=== PATIENT | female | born 1940 | race Caucasian/White ===

== ENCOUNTER 2019-01-19 15:02 | Emergency (ER) | payer MEDICARE ==
--- NOTE | 2019-01-19 15:15 | ERPHSYRPT ---
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 she tripped. no cp, no dizziness. pt c/o right cheek, right hand/wrist and right rib pain. denies soa but does hurt in area with a deep breath. Occurred: just prior to arrival Reason for Fall: lost balance, tripped Injuries/Pain Location: face, upper extremity (right wrist and hand) Loss of Consciousness: no loss of consciousness Quality: burning Severity of Pain-Max: moderate Severity of Pain-Current: moderate Modifying Factors: Improves With: movement Associated Symptoms (Fall): extremity injury, No abdominal pain, No back pain, No confusion, No chest pain, No dizziness, No neck pain, No shortness of breath , No trouble walking Allergies/Adverse Reactions: No Known Drug Allergies Allergy (Verified 01/19/19 15:25) Home Medications: ALPRAZolam [Xanax 0.5 mg] 0.5 mg PO QHS 08/01/15 [History] Aspirin 81 mg PO DAILY 08/01/15 [History] Docusate Sodium [Stool Softener] 100 mg PO DAILY 08/01/15 [History] Escitalopram Oxalate [Lexapro] 5 mg PO DAILY 08/01/15 [History] Levothyroxine Sodium [Synthroid] 50 mcg PO DAILY 08/01/15 [History] Metformin HCl 500 mg [Glucophage 500 MG] 500 mg PO BID 08/01/15 [History] Metoprolol Succinate 25 mg PO DAILY 08/01/15 [History] Pantoprazole Sodium [Protonix] 40 mg PO DAILY 08/01/15 [History] Duloxetine HCl 30 mg PO DAILY 01/19/19 [History] Prednisone 10 mg [Deltasone 10 mg] 10 mg PO DAILY 01/19/19 [History] - Review of Systems Constitutional: No Symptoms Eyes: No Symptoms Ears, Nose, & Throat: No Symptoms Respiratory: No Symptoms Cardiac: No Symptoms Abdominal/Gastrointestinal: No Symptoms Genitourinary Symptoms: No Symptoms Musculoskeletal: Fall, Injury (right face, wrist/hand, ribs) Neurological: No Symptoms Psychological: No Symptoms Endocrine: No Symptoms Hematologic/Lymphatic: No Symptoms Immunological/Allergic: No Symptoms All Other Systems: Reviewed and Negative - Past Medical History Pertinent Past Medical History: Yes Neurological History: No Pertinent History ENT History: No Pertinent History Cardiac History: Coronary Artery Disease, Hypertension Respiratory History: No Pertinent History Endocrine Medical History: Diabetes Type II Musculoskeletal History: Arthritis, Osteoarthritis, Rheumatoid Arthritis GI Medical History: Other History: Other Psycho-Social History: Depression Female Reproductive Disorders: Fibroids Other Medical History: restless leg, nausea,ibs,kidney infections - Past Surgical History Past Surgical History: Yes Neuro Surgical History: No Pertinent History Cardiac: CABG, Cardiac Catheterization, Cardiac Stent Respiratory: No Pertinent History Gastrointestinal: No Pertinent History Genitourinary: No Pertinent History Musculoskeletal: Orthopedic Surgery Female Surgical History: No Pertinent History Other Surgical History: childbirth,2normal,2csection,right knee arthroscopy 2008 ,right shoulder rotator cuff 2011,triple bipass 2013,6 stents placed prior to bipass - Social History Smoking Status: Never smoker Exposure to second hand smoke: No Drug Use: none - Nursing Vital Signs Nursing Vital Signs: Initial Vital Signs Temperature 97.7 F 01/19/19 15:14 Pulse Rate 83 01/19/19 15:14 Blood Pressure 186/86 01/19/19 15:14 O2 Sat by Pulse Oximetry 99 01/19/19 15:14 Pain Scale Pain Intensity 10 - [place] Coma Score Best Eye Response (Will): (4) open spontaneously Best Verbal Response (Will): (5) oriented Best Motor Response ([place]): (6) obeys commands Will Total: 15 - Physical Exam General Appearance: no apparent distress, alert, anxiety Head Injury: no evidence of injury, No Angel's Sign, No contusions, No ecchymosis, No raccoon eyes, No swelling, No tenderness Eye Exam: PERRL/EOMI, eyes nml inspection ENT Exam: hearing grossly normal, other (right cheek swelling and ecchymosis), No dental injury, No midface instability, No hemotympanum Neck Exam: supple, trachea midline, full range of motion, normal alignment, normal inspection Respiratory/Chest Exam: normal breath sounds, ecchymosis, rib tenderness, No respiratory distress Cardiovascular Exam: normal heart sounds, regular rate/rhythm, normal peripheral pulses Gastrointestinal Exam: soft, normal bowel sounds, No tenderness Rectal Exam: not done Back Exam: normal inspection, normal range of motion, No CVA tenderness, No vertebral tenderness Extremity Exam: pain with movement (right wrist and hand), tenderness, other ( bruising distal wrist and prox dorsum of right hand) Neurologic Exam: alert, oriented x 3, cooperative, health safety engineer II-XII nml as tested, normal mood/affect, nml cerebellar function, nml station & gait Skin Exam: normal color, warm, dry SpO2 Interpretation: normal O2 Delivery: Room Air - Course Nursing assessment & vital signs reviewed: Yes Ordered Tests: Active Orders 24 hr Category Date Time Status FACIAL BONES WO CONTRAST [CT] Stat Exams 01/19/19 15:39 Completed HAND (MINIMUM 3 VIEWS) Stat Exams 01/19/19 15:59 Completed HEAD WITHOUT CONTRAST [CT] Stat Exams 01/19/19 15:22 Completed RIBS UNILATERAL Stat Exams 01/19/19 15:24 Completed WRIST (MIN 3 VIEWS) Stat Exams 01/19/19 15:24 Completed Medication Summary Discontinued Medications Generic Name Dose Route Start Last Admin Trade Name Freq PRN Reason Stop Dose Admin Albuterol Sulfate 2.5 mg 01/19/19 15:26 01/19/19 16:35 Proventil 2.5 Mg/3 Ml Neb IH 01/19/19 15:27 Not Given STAT ONE - Progress Progress: improved, pain not gone completely, re-examined Progress Note: 01/19/19 16:40 ct head- no acute intracranial abnormalities ct facial bones-maxilla spine tiny fx of uncertain chronicity xray right wrist-no acute fx/dislocation; xray right hand-minimally displaced prox 5th metacarpal fx xray right ribs-no acute rib fx; no pneumothorax. pt only wants ibuprofen here. she does not have transportation home. pt using tramadol at home. no longer has hydrocodone at home. Counseled pt/family regarding: diagnosis, need for follow-up, rad results - Departure Departure Disposition: Home Clinical Impression: Metacarpal bone fracture Condition: Stable Critical Care Time: No Referrals: DAY GALDAMEZ [Primary Care Provider] - Additional Instructions: ice pack 3 times daily for 3 days to rib and hand areas. follow up with orthopedic tomorrow for further management. continue ibuprofen at home. follow up with primary doctor for persistent symptoms Prescriptions: Hydrocodone/APAP 5/325 [[place] 5/325 mg] 1 each PO Q8H PRN PRN #10 tablet MDD 3 PRN Reason: Pain
[2019-01-19 15:25] VITALS: BP 186/86; PULSE 83; O2SAT 99
[2019-01-19] MEDS ORDERED: PROVENTIL 2.5 MG/3 ML NEB IH ONE (15:26)
--- NOTE | 2019-01-19 16:23 | XRAY ---
Indication: Right head injury following fall. Multiple contiguous axial images obtained through the head without contrast. Comparison: None Age-appropriate global atrophy. No acute intracranial hemorrhage, abnormal extra-axial fluid collection, or mass effect. Fourth ventricle is midline without hydrocephalus. Bony calvarium intact. Visualized paranasal sinuses and mastoid air cells are clear. Impression: Atrophy. No acute intracranial abnormalities. CTDI 50.75
--- NOTE | 2019-01-19 16:24 | XRAY ---
Indication: Right facial pain following fall. Multiple contiguous axial images obtained through the facial bones. Sagittal and coronal reformatted images obtained. Comparison: None Tiny fracture involving the tip of maxilla spine of uncertain chronicity. Elsewhere no acute fracture, suspicious bony lesions, or radiopaque foreign body. Orbits including roof, campos, and floors are intact. Paranasal sinuses and nasal passages are clear. Mild nasal septal deviation to the right. Mild/moderate multilevel degenerative changes of the visualized cervical spine. Mild TMJ degenerative changes bilaterally. Left lower incisor tooth dental eduardo. Mild scattered carotid ossifications, left greater than right. Remaining visualized noncontrasted soft tissues unremarkable. Impression: 1. Maxilla spine tip fracture of uncertain chronicity. 2. Cervical spine and TMJ degenerative changes. 3. Incidental left incisor tooth dental eduardo. CTDI 59.47
--- NOTE | 2019-01-19 16:26 | XRAY ---
Indication: Pain following fall. Comparison: None 3 views of the right hand demonstrates mildly displaced transverse fracture proximal shaft 5th metacarpal. Elsewhere osteopenia and degenerative changes of all IP/MCP joints and base of the 1st metacarpal. No other bony, articular, or soft tissue abnormalities.
--- NOTE | 2019-01-19 16:28 | XRAY ---
Indication: Pain following fall. Comparison: None 3 views of the right wrist demonstrates mildly displaced transverse fracture proximal shaft 5th metacarpal. Elsewhere osteopenia, moderate/advanced degenerative changes base of 1st metacarpal, scapholunate widening concerning for underlying ligamentous tear, and mild scattered vascular calcifications. No other bony, articular, or soft tissue abnormalities.
--- NOTE | 2019-01-19 16:33 | XRAY ---
Indication: Pain following fall. Comparison: None 2 views of the right ribs demonstrates osteopenia, distal clavicle resection, moderate glenohumeral degenerative arthropathy, mild lower lumbar degenerative spondylosis, CABG surgery, and scattered aortic calcifications. No other bony, articular, or soft tissue abnormalities.
[2019-01-19] MEDS ORDERED: MOTRIN 600 MG ONE (16:39)
[2019-01-21] MEDS ORDERED: MOTRIN 600 MG PO ONE (09:35)
== END 2019-01-19 17:25 | disposition home or self-care (01) ==
LOC: ED 15:02
DX: S62.306A Unspecified fracture of fifth metacarpal bone, right hand, initial encounter for closed fracture (principal); W01.198A Fall on same level from slipping, tripping and stumbling with subsequent striking against other object, initial encounter; Y93.01 Activity, walking, marching and hiking; G50.1 Atypical facial pain; M79.641 Pain in right hand; M25.531 Pain in right wrist; R07.81 Pleurodynia; Z79.899 Other long term (current) drug therapy; R58 Hemorrhage, not elsewhere classified
CPT/HCPCS: 29126; 70450; 70486; 71100; 73110; 73130; 99284; A9270-GY

== ENCOUNTER 2019-05-24 13:20 | Day surgery (SDC) | payer MEDICARE ==
--- NOTE | 2019-05-24 09:16 | HP ---
DATE OF SURGERY: 05/24/2019 HISTORY OF PRESENT ILLNESS: The patient is a 79 year-old for a while worse recently nauseated, tenderness right upper quadrant, pain radiating to her back. Ultrasound cholelithiasis. It was felt she had symptomatic cholelithiasis, chronic cholecystitis and benefit from cholecystectomy. PAST MEDICAL HISTORY: Hypothyroidism, diabetes, anxiety, depression, hypertension. PAST SURGICAL HISTORY: Triple vessel bypass. Colonoscopy. Left shoulder surgery. Right knee surgery. Upper and lower endoscopy in the past. Hysterectomy in the past for fibroid. Carotid endarterectomy in the past. MEDICATIONS: Alprazolam, aspirin, calcium with vitamin D, diclofenac, duloxetine, metformin, metoprolol, pantoprazole, prednisone, tramadol, vitamin D. ALLERGIES: NKDA. FAMILY HISTORY: Arthritis, heart disease, prostate cancer. SOCIAL HISTORY: No smoking or alcohol abuse. REVIEW OF SYSTEMS: Fourteen systems reviewed per admission assessment. No chest pain or palpitations. Otherwise systems negative or noncontributory as above and per preadmission questionnaire. PHYSICAL EXAMINATION: GENERAL: No acute distress. HEENT: Sclerae nonicteric. NECK: No JVD. CHEST: Equal excursion, nonlabored breathing. CVS: Regular rate and rhythm. ABDOMEN: Soft, some mild tenderness right upper quadrant. No peritoneal signs. EXTREMITIES: No significant edema. NEURO: Alert, oriented, moving extremities symmetrically. No gross motor deficits noted. IMPRESSION: Symptomatic cholelithiasis, probable chronic cholecystitis. I feel the patient will benefit from cholecystectomy. Risks and benefits explained in detail including but not limited to bleeding or infection, risk of trocar injury or hernia, small risk of bowel, bladder or blood vessel injury, risk of bile leak, bile duct injury, retained stone or sludge possibly requiring further procedure either open or ERCP, general risk of anesthesia, deep venous thrombosis, pulmonary embolism, pneumonia, perioperative risk of aches, pains, bloating, constipation and/or loose stools possibly chronic in nature. She had been shown the gallbladder pamphlet and risk sheet, explained the procedure in detail. She understands and agrees to the planned procedure, will proceed with laparoscopic cholecystectomy with possible open as an outpatient.
[~2019-05-24 13:20] MED LIST: Lactated Ringers 0 ML IV ONE; Lactated Ringers 1,000 ML IV ONE; Sensorcaine 0.25% 10 ML ONE
[2019-05-24] MEDS ORDERED: Versed 2 MG/2 ML Injection ONE (13:59)
[2019-05-24] MEDS ORDERED: Zemuron 100 MG/10 ML ONE (13:59)
[2019-05-24] MEDS ORDERED: SUBLIMAZE 250 MCG/5 ML ONE (13:59)
[2019-05-24] MEDS ORDERED: DIPRIVAN 200 MG/20 ML IV ONE (13:59)
[2019-05-24] MEDS: Lactated Ringers 1,000 ML IV SCH (14:07)
[2019-05-24] MEDS: MEFOXIN 2 GM PREMIX** 2 GM/50 ML ML IV SCH (14:19)
[2019-05-24] MEDS ORDERED: BRIDION 200MG/2ML IV ONE (15:42)
[2019-05-24] MEDS ORDERED: SUBLIMAZE 100 MCG/2 ML ONE (16:10)
[2019-05-24] MEDS ORDERED: MORPHINE SULFATE 10 MG/ML ONE (16:19)
[2019-05-24] MEDS ORDERED: Zofran 4 MG/2 ML VIAL ONE ×2 (16:22→17:37)
[2019-05-24] MEDS: Zofran 4 MG/2 ML VIAL IV PRN (17:39)
[2019-05-24] MEDS ORDERED: MORPHINE SULFATE 2 MG INJ ONE (18:13)
[2019-05-24] MEDS: MORPHINE SULFATE 2 MG INJ IV PRN (18:14)
[2019-05-24 18:36] VITALS: BP 131/66; PULSE 75; O2SAT 94
--- NOTE | 2019-05-25 10:39 | OP ---
SURGERY DATE/TIME: 05/24/2019 1507 PREOPERATIVE DIAGNOSIS: Symptomatic cholelithiasis, chronic cholecystitis. POSTOPERATIVE DIAGNOSIS: Symptomatic cholelithiasis, chronic cholecystitis. PROCEDURE: Laparoscopic cholecystectomy. SURGEON: Dr. Nabil Sheets. ANESTHESIA: General. ESTIMATED BLOOD LOSS: Minimal. INDICATIONS: As noted above. Risks and benefits explained in detail but not limited to and consent obtained. DESCRIPTION OF PROCEDURE AND FINDINGS: The patient was taken to the operating room. General anesthesia induced. Abdomen prepped and draped in the usual sterile fashion. After official time out and no disagreement with planned procedure, a transverse incision made at the supraumbilical area. Fascia grasped and pulled upward. Veress needle inserted and tested with saline. Pneumoperitoneum accomplished insufflating opening pressure of 0-15. A 5 mm bladeless port and camera inserted without difficulty followed by two - 5 mm right upper quadrant ports and 11 mm epigastric port. The gallbladder grasped retracted over the edge of the liver and laterally away from Calot's triangle dissecting posterior, lateral to anterior fashion. Slowly and carefully cystic duct and infundibular area slowly and carefully well skeletonized until the critical view obtained both anteriorly and posteriorly. Cystic duct and cystic artery clipped x3 and divided in usual fashion. Gallbladder slowly and carefully dissected free from its dense attachment to liver bed, clipping a couple additional oozing side branches off the cystic artery directly on the gallbladder wall as necessary. Just prior to releasing from final attachments to the anterior edge of the liver, the liver bed re-inspected. There is ooze from a little pulsatile vessel near the anterior edge of the liver this required tangential clipping. It appeared to have good hemostasis at that point. Gallbladder released from final attachments to anterior edge of the liver, placed in Pleatman sac and pulled up into epigastrium. The fascia is spread slightly with clamp allowing the gallbladder and Pleatman sac to be pulled free and passed off. Copious amount of irrigation accomplished lateral to the liver and subhepatic space irrigating until clear. Liver bed appeared to have good hemostasis. No signs of any oozing at the anterior edge of the liver, this appeared to have good hemostasis at this point. Cystic duct and cystic artery stump clips were intact. No signs of any active bleeding or bile leakage. It was felt there is no benefit from drain placement at this point. Fascial defect epigastric area closed with puncture closure device with #1 Vicryl. Pneumoperitoneum decompressed. The wound irrigated out. Skin incision closed with 4-0 Vicryl. Steri-Strips and sterile dressing applied. 0.25% Marcaine local injected along the skin incision fascial defect. The patient tolerated the procedure well. There were no immediate complications. I will see if there is any family available to discuss the findings with out in the waiting area as they were not initially in the waiting room but will check. Otherwise the patient will be transferred to the recovery room in stable condition.
== END 2019-05-24 18:52 | disposition home or self-care (01) ==
LOC: SDC 13:20
PROVIDERS: ATTEND Surgery
DX: K80.10 Calculus of gallbladder with chronic cholecystitis without obstruction (principal); E11.9 Type 2 diabetes mellitus without complications; I10 Essential (primary) hypertension; E03.9 Hypothyroidism, unspecified; Z79.899 Other long term (current) drug therapy
CPT/HCPCS: 82962; 99100; J0694; J2250; J2270; J2405; J2704; J3010

== ENCOUNTER 2019-10-11 09:02 | Day surgery (SDC) | payer MEDICARE ==
[~2019-10-11 09:02] MED LIST changes: -Lactated Ringers 0 ML IV ONE; +Lactated Ringers 1,000 ML IV SCH; -Sensorcaine 0.25% 10 ML ONE
--- NOTE | 2019-10-11 09:02 | HP ---
DATE OF SURGERY: 10/11/2019 HISTORY OF PRESENT ILLNESS: This is a 79 year-old with some loose stools and she had her gallbladder removed in the past. She had nausea. It is felt she needs screening colonoscopy as well as upper endoscopy given she had changes in bowel habits, nausea and discomfort. Last colonoscopy five years or so ago. No prior upper endoscopy. PAST MEDICAL HISTORY: Heart disease, diabetes, anxiety. PAST SURGICAL HISTORY: Triple bypass done 15 years ago. Stents in the past. MEDICATIONS: Levothyroxine, Metformin, duloxetine, metoprolol, prednisone, pantoprazole, vitamin D2, magnesium, vitamins, Alprazolam, tramadol. ALLERGIES: NKDA. FAMILY HISTORY: Heart disease, arthritis, diabetes, prostate cancer, ulcer. SOCIAL HISTORY: No smoking or alcohol abuse. REVIEW OF SYSTEMS: Fourteen systems reviewed per admission assessment. No chest pain or palpitations other systems negative or noncontributory as above and per preadmission questionnaire. PHYSICAL EXAMINATION: GENERAL: No acute distress. HEENT: Sclerae nonicteric. NECK: No JVD. CHEST: Equal excursion, nonlabored breathing. CVS: Regular rate and rhythm. ABDOMEN: Soft. No peritoneal signs. EXTREMITIES: No significant edema. NEURO: Alert, oriented, moving extremities symmetrically. No gross motor deficits noted. RECTAL: Deferred timed to endoscopy exam. IMPRESSION: Nausea, epigastric discomfort, change in bowel habits. I feel she needs upper endoscopy for further evaluation of gastritis, celiac disease, radiology, as well as screening colonoscopy to evaluate for microscopic colitis or other etiology. She was explained the risk in detail but not limited to bleeding, infection, risk of bowel injury or perforation possibly requiring further procedure, risk of missed or nondiagnosis or incomplete exam possibly barium enema, other studies or procedures. General risk of anesthesia or sedation, risk of bowel prep but not limited to, inability to diagnose the etiology of her symptoms possibly requiring treatment procedures. She understands will proceed with EGD and colonoscopy as an outpatient.
[2019-10-11] MEDS ORDERED: DIPRIVAN 200 MG/20 ML IV ONE ×2 (09:33→10:22)
[2019-10-11] MEDS ORDERED: Ketamine HCl 50 MG/ML ONE (09:34)
[2019-10-11 11:26] VITALS: BP 161/74; PULSE 77; O2SAT 100
--- NOTE | 2019-10-12 10:49 | OP ---
SURGERY DATE/TIME: 10/11/2019 1011 PREOPERATIVE DIAGNOSIS: History of nausea, epigastric discomfort, history of change in bowel habits, need for upper and lower endoscopy. POSTOPERATIVE DIAGNOSES: 1) Mild gastritis. 2) Mild diverticulosis. 3) Good bowel prep. 4) Question small submucosal lipomatous density distal sigmoid. 5) Small internal hemorrhoids. PROCEDURES: 1) EGD with cold biopsy of small bowel to evaluate for celiac sprue. 2) Cold biopsy of the antrum to evaluate for Helicobacter pylori. 3) Random cold biopsy distal esophagus to evaluate for eosinophilic esophagitis. 4) Colonoscopy to terminal ileum. 5) Retrograde ileoscopy. 6) Random ileal biopsies to evaluate for microscopic ileitis, random cold colon biopsy to evaluate for microscopic colitis. 7) Hot biopsy of mucosa overlying collection of small submucosal lipomatous density distal sigmoid. SURGEON: Dr. Nabil Sheets. ANESTHESIA: MAC. ESTIMATED BLOOD LOSS: Minimal. INDICATIONS: As noted above. Risks and benefits explained in detail and not limited to and consent obtained. DESCRIPTION OF PROCEDURE AND FINDINGS: The patient is taken to the operating room. MAC anesthesia introduced. After official time out and no disagreement with planned procedure, bite block positioned. Video gastroscope easily passed down the esophagus to the gastroesophageal junction about 36 cm through the patent pylorus to the junction to the junction of second and third portion of the duodenum. Proximal duodenum and duodenal bulb grossly unremarkable. Cold biopsy is taken of small bowel to evaluate for celiac sprue. Good hemostasis noted. Scope pulled back in the stomach. She did have minimal to mild gastritis. Cold biopsy taken to evaluate for Helicobacter pylori. Good hemostasis noted. On retroflex there was no evidence of any significant hiatal hernia. No signs of any obvious ulcers, masses or other mucosal lesions. The scope is pulled back to the gastroesophageal junction about 36 cm. Z-line was fairly crisp. No signs of any esophagitis or [place]'s. She did have a little bit of a saw tooth spasm of esophagus. Therefore I went ahead and did some random cold biopsies to evaluate for eosinophilic esophagitis although the mucosa itself was pretty smooth. No obvious lesions. Good hemostasis noted. Random cold biopsies had been taken of the esophagus. The scope is withdrawn. The patient tolerated this part of the procedure well. There were no immediate complications. Attention is then turned to colonoscopy. Digital rectal exam did not reveal any rectal masses. She did have some small internal hemorrhoids. Video colonoscope inserted and passed up through the tortuous sigmoid, descending, transverse colon and ascending colon. With external pressure the scope was able to be passed around to the cecum. Appendiceal orifice and valve well visualized. Scope was passed up the terminal ileum. Retrograde ileoscopy was performed which was grossly unremarkable. Given her symptom complaints of nausea, abdominal discomfort, change in bowel habits, cold biopsy is taken to evaluate for microscopic ileitis. Good hemostasis noted. The scope is slowly and carefully withdrawn over the next eight minutes. Prep overall was good. There were no signs of any large polyps, masses or obstructing lesions. Some random cold biopsies were taken of the colon to evaluate for microscopic colitis. She did have a few little very small diverticula, had some small internal hemorrhoids and in the distal sigmoid very small question of submucosal lipoma, very small hot biopsies accomplished of the mucosa over the top of it. Good hemostasis noted. There were no signs of any large polyps, masses or obstructing lesions. Findings discussed with the family out in the waiting area.
== END 2019-10-11 11:35 | disposition home or self-care (01) ==
LOC: SDC 09:02
PROVIDERS: ATTEND Surgery
DX: K29.70 Gastritis, unspecified, without bleeding (principal); K57.30 Diverticulosis of large intestine without perforation or abscess without bleeding; K64.8 Other hemorrhoids; R19.4 Change in bowel habit; E11.9 Type 2 diabetes mellitus without complications; I51.9 Heart disease, unspecified; Z79.899 Other long term (current) drug therapy
CPT/HCPCS: 36000; 82962; 88305; 99100; J2704

== ENCOUNTER 2020-02-11 14:20 | Emergency (ER) | payer MEDICARE ==
[2020-02-11] MEDS ORDERED: ANTIVERT 25 MG PO ONE (15:00)
--- NOTE | 2020-02-11 15:03 | ERPHSYRPT ---
- History of Present Illness Time Seen by Provider: 02/11/20 14:53 Source: patient Patient Subjective Stated Complaint: I have been really dizzy and my blood pressure has been running high the past couple of days. My eyes feel like they are funny. Triage Nursing Assessment: Pt presents to ER with complaints of dizziness and high blood pressure for the past couple of days. Pt is alert and oriented x 3 and communicates normally. Pt walks with unsteady gait and cane assist. Pt states feels dizzy and has had increased blood pressure lately. Pt states she has had nausea, denies vomiting and diarrhea. Pt complains of her eye feeling funny. Pupils are PERRL. Skin pink, warm, and dry. Slight swelling noted to vanesa lower extremiites. Abd soft and nontender. Resp are easy, denies shortness of breath and lungs are clear and equal throughout. Physician History: 79 years old female with history of hypertension, diabetes mellitus, hypothyroidism, hyperlipidemia presented in the ER with chief complaint of dizziness and elevated blood pressure. Patient reports this as a room spinning sensation more with standing up, activity and better with resting. Denies diplopia. She has chronic issues with balance and visual symptoms and thinks part of it is because of her eyesight needs to be corrected. She denies visual halos, floaters etc. Denies any numbness tingling or focal weakness. No difficulty speech. Denies any chest pain palpitations or shortness of breath during episodes of dizziness. Patient takes metoprolol for palpitations and her blood pressure is usually very well controlled but for the last couple of days she has been checking it regularly and it is staying high with 150s and 160s at times. She denies extra salt intake. She has mild nausea associated with dizziness but no vomiting. Timing/Duration: day(s) (2), intermittent, gradual onset, worse Severity: moderate Modifying Factors: Improves With: movement, rest Associated Symptoms: nausea Allergies/Adverse Reactions: No Known Drug Allergies Allergy (Verified 02/11/20 14:52) Home Medications: Levothyroxine Sodium [Synthroid] 50 mcg PO DAILY 08/01/15 [History] Metformin HCl 500 mg [Glucophage 500 MG] 500 mg PO DAILY 08/01/15 [History ] Metoprolol Succinate 25 mg PO DAILY 08/01/15 [History] Pantoprazole Sodium [Protonix] 40 mg PO DAILY 08/01/15 [History] Tramadol HCl 50 mg [Ultram 50 mg] 50 mg PO Q6HPRN PRN 05/13/19 [History] Ezetimibe 10 mg [Zetia 10 MG] 10 mg PO DAILY 09/23/19 [History] Hx Tetanus, Diphtheria Vaccination/Date Given: Yes Hx Influenza Vaccination/Date Given: Yes Hx Pneumococcal Vaccination/Date Given: Yes Immunizations Up to Date: Yes Travel Risk - International Travel Have you traveled outside of the country in past 3 weeks: No Have you or anyone close to you been diagnosed with or: No Do your reside in a community with a known COVID-19 case?: Yes If Yes where:: [facility] - Coronavirus Screening Has patient experienced Coronavirus symptoms: No - Review of Systems Constitutional: No Symptoms Eyes: Vision Changes Ears, Nose, & Throat: No Symptoms Respiratory: No Symptoms Cardiac: No Symptoms Abdominal/Gastrointestinal: Nausea Genitourinary Symptoms: No Symptoms Musculoskeletal: No Symptoms Neurological: No Symptoms Psychological: No Symptoms Endocrine: No Symptoms Hematologic/Lymphatic: No Symptoms Immunological/Allergic: No Symptoms - Past Medical History Pertinent Past Medical History: Yes Neurological History: No Pertinent History ENT History: No Pertinent History Cardiac History: Coronary Artery Disease, High Cholesterol Respiratory History: No Pertinent History Endocrine Medical History: Diabetes Type II, Hypothyroidism Musculoskeletal History: Arthritis, Osteoarthritis, Rheumatoid Arthritis GI Medical History: Other History: Other Psycho-Social History: Depression Female Reproductive Disorders: Fibroids Other Medical History: restless leg, nausea,ibs,kidney infections - Past Surgical History Past Surgical History: Yes Neuro Surgical History: No Pertinent History Cardiac: CABG, Cardiac Catheterization, Cardiac Stent Respiratory: No Pertinent History Gastrointestinal: Cholecystectomy Genitourinary: No Pertinent History Musculoskeletal: Orthopedic Surgery Female Surgical History: Hysterectomy, Section Other Surgical History: childbirth,2normal,2csection,right knee arthroscopy 2008 ,right shoulder rotator cuff 2011,triple bipass 2013,6 stents placed prior to bipass, skin cancer removed from top if head. - Social History Smoking Status: Never smoker Exposure to second hand smoke: No Drug Use: none Patient Lives Alone: Yes - Female History Hx Now: No - Nursing Vital Signs Nursing Vital Signs: Initial Vital Signs Temperature 97.8 F 02/11/20 14:40 Pulse Rate 69 02/11/20 14:40 Respiratory Rate 18 02/11/20 14:40 Blood Pressure 170/83 02/11/20 14:40 O2 Sat by Pulse Oximetry 95 02/11/20 14:40 Pain Scale Pain Intensity 0 - Physical Exam General Appearance: no apparent distress, alert, anxiety Eye Exam: PERRL/EOMI, eyes nml inspection Ears, Nose, Throat Exam: normal ENT inspection, TMs normal, pharynx normal Neck Exam: normal inspection, non-tender, supple, full range of motion Respiratory Exam: normal breath sounds, lungs clear Cardiovascular Exam: regular rate/rhythm, normal heart sounds Gastrointestinal/Abdomen Exam: soft, normal bowel sounds, No tenderness Back Exam: normal inspection, normal range of motion Extremity Exam: normal inspection Neurologic Exam: alert, oriented x 3, cooperative, sander hand II-XII nml as tested, normal mood/affect, nml cerebellar function, sensation nml, No motor deficits, No sensory deficit Skin Exam: normal color SpO2 Interpretation: normal SpO2: 95 O2 Delivery: Room Air - Course Nursing assessment & vital signs reviewed: Yes EKG Interpreted by Me: RATE (69), Sinus Rhythm, NORMAL AXIS, Non-specific ST Changes, Other (EKG #2. Time interpreted 5:45 PM. Rate 71. Rhythm sinus. [place] normal. Intervals normal. Nonspecific ST changes.) Ordered Tests: Active Orders 24 hr Category Date Time Status EKG-ER Only STAT Care 02/11/20 15:00 Active IV Insertion STAT Care 02/11/20 15:00 Active Orthostatic Vital Signs STAT Care 02/11/20 15:00 Active CHEST 1 VIEW (PORTABLE) Stat Exams 02/11/20 15:01 Completed HEAD WITHOUT CONTRAST [CT] Stat Exams 02/11/20 15:01 Completed CBC W DIFF Stat Lab 02/11/20 16:25 Completed CMP Stat Lab 02/11/20 16:25 Completed Lactic Acid Stat Lab 02/11/20 15:00 Ordered TROPONIN Q3H Lab 02/11/20 16:25 Completed TROPONIN Q3H Lab 02/11/20 18:30 Received TROPONIN Q3H Lab 02/11/20 21:00 Ordered TROPONIN Q3H Lab 02/12/20 00:00 Ordered TROPONIN Q3H Lab 02/12/20 03:00 Ordered UA W/RFX UR CULTURE Stat Lab 05/08/20 16:30 Completed Medication Summary Discontinued Medications Generic Name Dose Route Start Last Admin Trade Name Lela PRN Reason Stop Dose Admin Sodium Chloride 500 mls @ 499 mls/hr 02/11/20 15:00 02/11/20 16:38 Sodium Chloride 0.9% 1000 Ml IV 02/11/20 16:00 Infused .Q1H1M STA Infusion Sodium Chloride Confirm 02/11/20 15:20 Sodium Chloride 0.9% 1000 Ml Administered 02/11/20 15:21 Dose 1,000 mls @ ud .ROUTE .STK-MED ONE Meclizine HCl 12.5 mg 02/11/20 15:00 02/11/20 15:24 Antivert 25 Mg PO 02/11/20 15:01 12.5 mg STAT ONE Administration Meclizine HCl Confirm 02/11/20 15:20 Antivert 25 Mg Administered 02/11/20 15:21 Dose 25 mg .ROUTE .STK-MED ONE Lab/Rad Data: Laboratory Result Diagrams 02/11/20 16:25 02/11/20 16:25 Laboratory Results 02/11/20 02/11/20 02/11/20 Range/Units 16:30 16:25 16:25 WBC 9.4 (4.0-10.5) K/mm3 RBC 4.39 (4.1-5.4) M/mm3 Hgb 13.0 (12.0-16.0) gm/dl Hct 41.4 (35-47) % MCV 94.3 (78-100) fl MCH 29.6 (26-32) pg MCHC 31.4 L (32-36) g/dl RDW 14.6 H (11.5-14.0) % Plt Count 300 (150-450) K/mm3 MPV 10.4 (7.5-11.0) fl Gran % 53.6 (36.0-66.0) % Eos # (Auto) 0.19 (0-0.5) Absolute Lymphs (auto) 3.15 (1.0-4.6) Absolute Monos (auto) 0.97 (0.0-1.3) Lymphocytes % 33.5 (24.0-44.0) % Monocytes % 10.3 (0.0-12.0) % Eosinophils % 2.0 (0.00-5.0) % Basophils % 0.6 (0.0-0.4) % Absolute Granulocytes 5.03 (1.4-6.9) Basophils # 0.06 (0-0.4) Sodium 138 (137-145) mmol/L Potassium 4.2 (3.5-5.1) mmol/L Chloride 101 (98-107) mmol/L Carbon Dioxide 29 (22-30) mmol/L Anion Gap 12.8 (5-15) MEQ/L BUN 12 (7-17) mg/dL Creatinine 0.65 (0.52-1.04) mg/dL Estimated GFR > 60.0 ML/MIN Glucose 86 (74-106) mg/dL Calcium 9.3 (8.4-10.2) mg/dL Total Bilirubin 0.80 (0.2-1.3) mg/dL AST 24 (14-36) U/L ALT 11 (0-35) U/L Alkaline Phosphatase 104 (38-126) U/L Troponin I (0.000-0.034) ng/mL Serum Total Protein 7.8 (6.3-8.2) g/dL Albumin 4.2 (3.5-5.0) g/dL Urine Color YELLOW (YELLOW) Urine Appearance CLEAR (CLEAR) Urine pH 7.0 (5-6) Ur Specific [place] 1.006 (1.005-1.025) Urine Protein NEGATIVE (Negative) Urine Ketones NEGATIVE (NEGATIVE) Urine Blood NEGATIVE (0-5) Oscar/ul Urine Nitrite NEGATIVE (NEGATIVE) Urine Bilirubin NEGATIVE (NEGATIVE) Urine Urobilinogen NEGATIVE (0-1) mg/dL Ur Leukocyte Esterase NEGATIVE (NEGATIVE) Urine WBC (Auto) NONE (0-5) /HPF Urine RBC (Auto) NONE (0-2) /HPF U Epithel Cells (Auto) NONE (FEW) /HPF Urine Bacteria (Auto) NONE (NEGATIVE) /HPF Urine Mucus (Auto) SLIGHT (NEGATIVE) /HPF Urine Culture Reflexed NO (NO) Urine Glucose NEGATIVE (NEGATIVE) mg/dL 02/11/20 Range/Units 16:25 WBC (4.0-10.5) K/mm3 RBC (4.1-5.4) M/mm3 Hgb (12.0-16.0) gm/dl Hct (35-47) % MCV (78-100) fl MCH (26-32) pg MCHC (32-36) g/dl RDW (11.5-14.0) % Plt Count (150-450) K/mm3 MPV (7.5-11.0) fl Gran % (36.0-66.0) % Eos # (Auto) (0-0.5) Absolute Lymphs (auto) (1.0-4.6) Absolute Monos (auto) (0.0-1.3) Lymphocytes % (24.0-44.0) % Monocytes % (0.0-12.0) % Eosinophils % (0.00-5.0) % Basophils % (0.0-0.4) % Absolute Granulocytes (1.4-6.9) Basophils # (0-0.4) Sodium (137-145) mmol/L Potassium (3.5-5.1) mmol/L Chloride (98-107) mmol/L Carbon Dioxide (22-30) mmol/L Anion Gap (5-15) MEQ/L BUN (7-17) mg/dL Creatinine (0.52-1.04) mg/dL Estimated GFR ML/MIN Glucose (74-106) mg/dL Calcium (8.4-10.2) mg/dL Total Bilirubin (0.2-1.3) mg/dL AST (14-36) U/L ALT (0-35) U/L Alkaline Phosphatase (38-126) U/L Troponin I < 0.012 (0.000-0.034) ng/mL Serum Total Protein (6.3-8.2) g/dL Albumin (3.5-5.0) g/dL Urine Color (YELLOW) Urine Appearance (CLEAR) Urine pH (5-6) Ur Specific [place] (1.005-1.025) Urine Protein (Negative) Urine Ketones (NEGATIVE) Urine Blood (0-5) Oscar/ul Urine Nitrite (NEGATIVE) Urine Bilirubin (NEGATIVE) Urine Urobilinogen (0-1) mg/dL Ur Leukocyte Esterase (NEGATIVE) Urine WBC (Auto) (0-5) /HPF Urine RBC (Auto) (0-2) /HPF U Epithel Cells (Auto) (FEW) /HPF Urine Bacteria (Auto) (NEGATIVE) /HPF Urine Mucus (Auto) (NEGATIVE) /HPF Urine Culture Reflexed (NO) Urine Glucose (NEGATIVE) mg/dL - Progress Progress: improved, re-examined Progress Note: 79 years old is evaluated for some vertiginous symptoms which seems like positional. I have obtain orthostatic vitals which are negative. I have given her a small bolus of fluid and meclizine, on reevaluation patient report her dizziness is completely gone even with movements. She has a nonfocal neuro exam grossly. She walks with a cane for quite some time. No deficit otherwise. I have obtained CT head which is negative. Chest x-ray did not show any acute findings. EKG normal sinus with no acute ST elevation or depression. Troponin negative x2. Unremarkable chemistries. No UTI. She is offered observation admission to rule out any arrhythmias and other work-up but she wants to go home. Patient states that she has nobody to take care of her dogs and she cannot leave them alone. I will give her low-dose of meclizine to go home. She also has some element of anxiety and recommended monitoring blood pressure regularly and follow-up with primary care and counseled her that blood pressure for her age if it is around 150 it is not elevated, she needs to keep a log and take it to primary care which she seems understanding. ]\ 02/11/20 18:47 Counseled pt/family regarding: lab results, diagnosis, need for follow-up, rad results - Departure Departure Disposition: Home Clinical Impression: Postural dizziness, Uncontrolled hypertension Condition: Stable Critical Care Time: No Referrals: DAY GALDAMEZ [Primary Care Provider] - Follow Up with PCP/3 days Instructions: Vertigo (a Type of Dizziness) (DC) Additional Instructions: Follow-up with primary care physician for reevaluation. Use walker or cane all the time for ambulation to avoid a fall. Take meclizine only as needed. Return to ER for worsening dizziness, diplopia, numbness tingling focal weakness , chest pain palpitations or shortness of breath. Prescriptions: Meclizine HCl 25 mg [Antivert 25 mg] 12.5 mg PO BIDPRN PRN #20 tablet PRN Reason: Dizziness
[2020-02-11] MEDS ORDERED: ANTIVERT 25 MG ONE (15:20)
[2020-02-11] MEDS ORDERED: Sodium Chloride 0.9% 1000 ML 1,000 ML ONE (15:20)
--- NOTE | 2020-02-11 15:36 | XRAY ---
Indication: Dizziness and blurred vision. Blood pressure. Multiple contiguous axial images obtained through the head without contrast. Comparison: January 20, 2020. There is age-appropriate global atrophy and minimal periventricular degenerative micro-ischemia. No acute intracranial hemorrhage, abnormal extra-axial fluid collection, or mass effect. Duke-white matter differentiation preserved. Fourth ventricle is midline without hydrocephalus. Bony calvarium intact. Visualized paranasal sinuses and mastoid air cells are clear. Impression: Nonacute senile brain.
--- NOTE | 2020-02-11 15:39 | XRAY ---
Indication: Dizziness and blurred vision one week. High blood pressure. Comparison: January 12, 2013. Portable chest less inflated again without focal infiltrate, consolidation, or large effusion. Heart is not enlarged with interval CABG surgery. Bony thorax intact again with mild osteopenia, degenerative changes, and distal right clavicle resection. Impression: Continued nonacute chest with chronic features.
[2020-02-11 16:44] LABS: Absolute Neutrophil Ct (ANC) 5.03 (1.4-6.9); BASOPHIL % 0.6 % (0.0-0.4); Basophil (Absolute #) 0.06 (0-0.4); Eosinophil (Absolute #) 0.19 (0-0.5); Hematocrit 41.4 % (35-47); Lymphocyte (Absolute #) 3.15 (1.0-4.6); Lymphocytes % 33.5 % (24.0-44.0); Mean Cell Volume 94.3 fl (78-100); Mean Corpuscular Hemoglobin 29.6 pg (26-32); Mean Corpuscular Hgb Concent. 31.4 g/dl (32-36); Mean Platelet Volume 10.4 fl (7.5-11.0); Monocyte (Absolute #) 0.97 (0.0-1.3); Monocytes % 10.3 % (0.0-12.0); Neutrophil % 53.6 % (36.0-66.0); Platelet Count 300 K/mm3 (150-450); Red Blood Count 4.39 M/mm3 (4.1-5.4); Red Cell Distribution Width 14.6 % (11.5-14.0); White Blood Count 9.4 K/mm3 (4.0-10.5)
[2020-02-11 16:46] LABS: Appearance CLEAR (CLEAR); Bilirubin NEGATIVE (NEGATIVE); Blood NEGATIVE Ery/ul (0-5); Glucose NEGATIVE (NEGATIVE); Ketones NEGATIVE (NEGATIVE); Leukocyte Esterase NEGATIVE (NEGATIVE); Mucus SLIGHT /HPF (NEGATIVE); Nitrite NEGATIVE (NEGATIVE); Protein,Urine Dip NEGATIVE (Negative); Specific Gravity 1.006 (1.005-1.025); Urobilinogen NEGATIVE mg/dL (0-1)
[2020-02-11 16:54] LABS: ALBUMIN 4.2 g/dL (3.5-5.0); ALKALINE PHOSPHATASE 104 U/L (38-126); ANION GAP 12.8 MEQ/L (5-15); BLOOD UREA NITROGEN 12 mg/dL (7-17); CHLORIDE 101 mmol/L (98-107); Calcium 9.3 mg/dL (8.4-10.2); Carbon Dioxide 29 mmol/L (22-30); Creatinine 1 0.65 mg/dL (0.52-1.04); Glucose 86 mg/dL (74-106); Potassium 4.2 mmol/L (3.5-5.1); SGOT/AST 24 U/L (14-36); SGPT/ALT 11 U/L (0-35); SODIUM 138 mmol/L (137-145); Total Protein 7.8 g/dL (6.3-8.2)
[2020-02-11 19:02] VITALS: BP 172/97; PULSE 66; O2SAT 98
== END 2020-02-11 19:02 | disposition home or self-care (01) ==
LOC: ED 14:20
DX: R42 Dizziness and giddiness (principal); I10 Essential (primary) hypertension; I25.10 Atherosclerotic heart disease of native coronary artery without angina pectoris; E78.00 Pure hypercholesterolemia, unspecified; E11.9 Type 2 diabetes mellitus without complications; E03.9 Hypothyroidism, unspecified; F32.9 Major depressive disorder, single episode, unspecified; M06.9 Rheumatoid arthritis, unspecified
CPT/HCPCS: 36000; 36415; 70450; 71045; 80053; 81001; 84484; 85025; 93005; 96360; 99284; A9270-GY

== ENCOUNTER 2022-10-28 12:43 | Emergency (ER) | payer MEDICARE ==
--- NOTE | 2022-10-28 12:57 | ERPHSYRPT ---
- History of Present Illness Time Seen by Provider: 10/28/22 12:56 Source: patient Exam Limitations: no limitations Physician History: This is an 82-year-old white female patient of Dr. Pritesh Pereyra who has chronic low back pain. She complains of left hip pain and sciatica there is been present over 3 days. Patient started on Medrol Dosepak and only took a few days because she started having some nausea and stomach upset. Patient is taking tramadol. Patient had a CT scan of the abdomen pelvis on 10/09/2022 without contrast. There were chronic findings. There is no acute findings present. There was no abdominal aortic aneurysm. There is mild degenerative changes in both hips. Patient has a history of hypothyroidism, hypertension, gastroesophageal reflux disease, coronary artery disease, arthritis, osteoarthritis, rheumatoid arthritis and hyperlipidemia. Patient denies chest pain. She does not have shortness of breath. Patient states that she came to the emergency department because of upset stomach and nausea that she has had in the last few days. Again, she has stopped her Medrol Dosepak. I obtained history from the patient's friend as well as the patient's old chart and recent outpatient clinic visit at [facility]. Patient states that currently her left leg does not hurt when she is not moving it. Timing/Duration: day(s) (3), intermittent Method of Injury: other (No known injury) Quality: sharp (When moving her left leg), stabbing (When moving her left leg) Severity of Pain-Max: moderate Severity of Pain-Current: mild Modifying Factors: Improves With: movement Associated Symptoms: nausea, lower back pain, No urinary incontinence, No loss of bowel control, No vomiting, No numbness in legs/feet, No weakness Previous symptoms: same symptoms as today, recently seen, recently treated Allergies/Adverse Reactions: No Known Drug Allergies Allergy (Verified 10/28/22 12:56) Home Medications: Levothyroxine Sodium [Synthroid] 50 mcg PO DAILY 08/01/15 [History] Metformin HCl 500 mg [Glucophage 500 MG] 500 mg PO DAILY 08/01/15 [History] Metoprolol Succinate 25 mg PO DAILY 08/01/15 [History] Pantoprazole Sodium [Protonix] 40 mg PO DAILY 08/01/15 [History] Ezetimibe 10 mg [Zetia 10 MG] 10 mg PO DAILY 09/23/19 [History] ALPRAZolam [Alprazolam] 1 ea DAILY 10/28/22 [History] methylPREDNISolone [Methylprednisolone] 4 mg PO DAILY 10/28/22 [History] Hx Tetanus, Diphtheria Vaccination/Date Given: Yes Hx Influenza Vaccination/Date Given: Yes Hx Pneumococcal Vaccination/Date Given: Yes Travel Risk - International Travel Have you traveled outside of the country in past 3 weeks: No - Coronavirus Screening Are you exhibiting any of the following symptoms?: No Close contact with a COVID-19 positive Pt in past 14-21 Days: No - Review of Systems Constitutional: No Symptoms Eyes: No Symptoms Ears, Nose, & Throat: No Symptoms Respiratory: No Symptoms Cardiac: No Symptoms Abdominal/Gastrointestinal: Abdominal Pain (Mild epigastric), Nausea, No Vomiting, No Diarrhea Genitourinary Symptoms: No Symptoms Musculoskeletal: Back Pain Skin: No Symptoms Neurological: No Symptoms Psychological: No Symptoms Endocrine: No Symptoms Hematologic/Lymphatic: No Symptoms Immunological/Allergic: No Symptoms All Other Systems: Reviewed and Negative - Past Medical History Pertinent Past Medical History: Yes Neurological History: No Pertinent History ENT History: No Pertinent History Cardiac History: Coronary Artery Disease, High Cholesterol Respiratory History: No Pertinent History Endocrine Medical History: Diabetes Type II, Hypothyroidism Musculoskeletal History: Arthritis, Osteoarthritis, Rheumatoid Arthritis GI Medical History: Other History: Other Psycho-Social History: Depression Female Reproductive Disorders: Fibroids Other Medical History: restless leg, nausea,ibs,kidney infections - Past Surgical History Past Surgical History: Yes Neuro Surgical History: No Pertinent History Cardiac: CABG, Cardiac Catheterization, Cardiac Stent Respiratory: No Pertinent History Gastrointestinal: Cholecystectomy Genitourinary: No Pertinent History Musculoskeletal: Orthopedic Surgery Female Surgical History: Hysterectomy, Section Other Surgical History: childbirth,2normal,2csection,right knee arthroscopy 2008,right shoulder rotator cuff 2011,triple bipass 2013,6 stents placed prior to bipass, skin cancer removed from top if head. - Social History Smoking Status: Never smoker Exposure to second hand smoke: No Drug Use: none Patient Lives Alone: Yes - Nursing Vital Signs Nursing Vital Signs: Initial Vital Signs Temperature 97.0 F 10/28/22 12:54 Pulse Rate 72 10/28/22 12:54 Respiratory Rate 18 10/28/22 12:54 Blood Pressure 128/72 10/28/22 12:54 O2 Sat by Pulse Oximetry 96 10/28/22 12:54 Pain Scale Pain Intensity 0 - Physical Exam General Appearance: no apparent distress, alert, anxiety Eye Exam: PERRL/EOMI, eyes nml inspection Ears, Nose, Throat Exam: normal ENT inspection, moist mucous membranes Neck Exam: normal inspection, non-tender, supple, full range of motion Respiratory Exam: normal breath sounds, lungs clear, airway intact, No chest tenderness, No respiratory distress Cardiovascular Exam: regular rate/rhythm, normal heart sounds, normal peripheral pulses Gastrointestinal Exam: soft, normal bowel sounds, No tenderness, No guarding Pelvic Exam: not done Rectal Exam: not done Back Exam: normal inspection, decreased range of motion, muscle spasm, No CVA te nderness Extremity Exam: normal inspection, normal range of motion, pelvis stable Neurologic Exam: alert, oriented x 3, cooperative, reception manager II-XII nml as tested, normal mood/affect, nml cerebellar function, nml station & gait, sensation nml Skin Exam: normal color, warm, dry Lymphatic Exam: No adenopathy SpO2 Interpretation: normal SpO2: 96 O2 Delivery: Room Air - Course Nursing assessment & vital signs reviewed: Yes Ordered Tests: Active Orders 24 hr Category Date Time Status IV Insertion STAT Care 10/28/22 13:32 Active LUMBAR SPINE W/O [CT] Stat Exams 10/28/22 13:53 Completed AMYLASE Stat Lab 10/28/22 13:50 Completed CBC W DIFF Stat Lab 10/28/22 13:50 Completed CMP Stat Lab 10/28/22 13:50 Completed LIPASE Stat Lab 10/28/22 13:50 Completed UA W/RFX UR CULTURE Stat Lab 10/28/22 15:13 Completed Medication Summary Generic Name Dose Route Start Last Admin Trade Name Freq PRN Reason Stop Dose Admin Sodium Chloride 1,000 mls @ 100 mls/hr 10/28/22 13:45 10/28/22 13:42 Sodium Chloride 0.9% 1000 Ml IV 11/27/22 13:44 100 mls/hr .Q10H EVGENY Administration Discontinued Medications Generic Name Dose Route Start Last Admin Trade Name Freq PRN Reason Stop Dose Admin Methylprednisolone Sodium 0 mg 10/28/22 16:09 10/28/22 16:24 Succinate 125 mg/ Sterile IV 10/28/22 16:10 125 mg Water 2 ml STAT ONE Administration Methylprednisolone Sodium Succinate Confirm 10/28/22 16:21 Methylprednis Sod Succ 125 Mg/2 Ml Vial Administered 10/28/22 16:22 Dose 125 mg .ROUTE .STK-MED ONE Morphine Sulfate 2 mg 10/28/22 16:09 10/28/22 16:25 Morphine Sulfate 2 Mg/Ml Inj IV 10/28/22 16:10 2 mg STAT ONE Administration Morphine Sulfate Confirm 10/28/22 16:20 Morphine Sulfate 2 Mg/Ml Inj Administered 10/28/22 16:21 Dose 2 mg .ROUTE .STK-MED ONE Ondansetron HCl 4 mg 10/28/22 13:32 10/28/22 13:42 Ondansetron Hcl 4 Mg/2 Ml Vial IV 10/28/22 13:33 4 mg STAT ONE Administration Ondansetron HCl Confirm 10/28/22 13:39 Ondansetron Hcl 4 Mg/2 Ml Vial Administered 10/28/22 13:40 Dose 4 mg .ROUTE .STK-MED ONE Pantoprazole Sodium 40 mg 10/28/22 13:54 10/28/22 14:05 Pantoprazole 40 Mg Vial IV 10/28/22 13:55 40 mg STAT ONE Administration Pantoprazole Sodium Confirm 10/28/22 14:03 Pantoprazole 40 Mg Vial Administered 10/28/22 14:04 Dose 40 mg IV .STK-MED ONE Sterile Water Confirm 10/28/22 16:20 Water For Injection,Sterile 10 Ml Vial Administered 10/28/22 16:21 Dose 10 ml IJ .STK-MED ONE Lab/Rad Data: Laboratory Result Diagrams 10/28/22 13:50 10/28/22 13:50 Laboratory Results 10/28/22 10/28/22 10/28/22 Range/Units 15:13 13:50 13:50 WBC 13.0 H (4.0-10.5) x10^3/uL RBC 4.42 (4.1-5.4) x10^6/uL Hgb 13.3 (12.0-16.0) g/dL Hct 41.1 (35-47) % MCV 93.0 (78-100) fL MCH 30.1 (26-32) pg MCHC 32.4 (32-36) g/dL RDW 14.4 H (11.5-14.0) % Plt Count 354 (150-450) x10^3/uL MPV 9.9 (7.5-11.0) fL Gran % 63.6 (36.0-66.0) % Immature Gran % (Auto) 0.4 (0.00-0.4) % Nucleat RBC Rel Count 0.0 (0.00-0.1) % Eos # (Auto) 0.08 (0-0.5) x10^3/uL Immature Gran # (Auto) 0.05 H (0.00-0.03) x10^3u/L Absolute Lymphs (auto) 3.28 (1.0-4.6) x10^3/uL Absolute Monos (auto) 1.22 (0.0-1.3) x10^3/uL Absolute Nucleated RBC 0.00 (0.00-0.01) x10^3u/L Lymphocytes % 25.3 (24.0-44.0) % Monocytes % 9.4 (0.0-12.0) % Eosinophils % 0.6 (0.00-5.0) % Basophils % 0.7 (0.0-0.4) % Absolute Granulocytes 8.23 H (1.4-6.9) x10^3/uL Basophils # 0.09 (0-0.4) x10^3/uL Sodium 131 L (137-145) mmol/L Potassium 4.9 (3.5-5.1) mmol/L Chloride 99 (98-107) mmol/L Carbon Dioxide 25 (22-30) mmol/L Anion Gap 11.5 (5-15) MEQ/L BUN 13 (7-17) mg/dL Creatinine 0.65 (0.52-1.04) mg/dL Estimated GFR > 60.0 ML/MIN Glucose 89 (74-106) mg/dL Calcium 8.9 (8.4-10.2) mg/dL Total Bilirubin 0.70 (0.2-1.3) mg/dL AST 29 (14-36) U/L ALT 16 (0-35) U/L Alkaline Phosphatase 88 (38-126) U/L Serum Total Protein 7.2 (6.3-8.2) g/dL Albumin 4.2 (3.5-5.0) g/dL Amylase 52 (30-110) U/L Lipase 88 (23-300) U/L Urine Color Yellow (Yellow) Urine Appearance Clear (Clear) Urine pH 7.0 (4.6-8.0) Ur Specific [place] 1.010 (1.005-1.030) Urine Protein Negative (Negative) Urine Glucose (UA) Negative (Negative) mg/dL Urine Ketones Negative (Negative) Urine Blood Negative (Negative) Urine Nitrite Negative (Negative) Urine Bilirubin Negative (Negative) Urine Urobilinogen 0.2 (0.2) mg/dL Ur Leukocyte Esterase Negative (Negative) U Hyaline Cast (Auto) NONE SEEN (0-2) /LPF Urine Microscopic RBC 0-2 (0-5) /HPF Urine Microscopic WBC 0-2 (0-5) /HPF Ur Epithelial Cells None Seen (None Seen) /HPF Urine Bacteria None Seen (None Seen) /HPF Urine Culture Reflexed NO (NO) - Progress Progress: improved, pain not gone completely Progress Note: 10/28/22 14:02 Medical decision making: This patient had a CAT scan of the abdomen pelvis within the last approximately 2 to 3 weeks. Nothing has really changed in terms of her abdomen and pelvis. She has persistent, intermittent sharp shooting sciatica on the left side. She was started on some steroids which I think has maybe caused some gastritis. Based on my physical examination, the patient does not have an acute surgical abdomen. I do not think it is necessary to repeat the CAT scan of the abdomen pelvis without contrast or with contrast. Patient has no evidence of any abdominal aortic aneurysm. 10/28/22 15:16 CT scan of the lumbar spine without contrast shows no new or acute findings. This is compared to CT scan of the abdomen pelvis without contrast performed on 10/09/2022. 10/28/22 16:39 Medical decision making: This patient had some nausea and abdominal complaints which is likely secondary to the steroid that she was taking orally. She still has her sciatic pain when she moves her left leg. We will change her medications around and have her stop her steroids. Patient is to follow-up with Dr. Pritesh Pereyra by phone tomorrow to make arrange for follow-up appointment. She is to continue taking her Protonix as I will place her on naproxen twice daily with food and [place] 5/325 1/2 to 1 tablet orally 2 times a day as needed for sciatica pain Counseled pt/family regarding: lab results, diagnosis, need for follow-up, rad results - Departure Departure Disposition: Home Clinical Impression: Gastritis, Left sided sciatica Condition: Stable Critical Care Time: No Referrals: LUIS DANIEL HORTA [Primary Care Provider] - Follow up/PCP as directed Additional Instructions: Stop your steroid. Take your new medication as prescribed. Follow-up with Dr. Pritesh Pereyra's office by phone tomorrow to make arrangements for follow-up appointment. Prescriptions: Ondansetron ODT 4 MG [Zofran Odt 4 mg] 4 mg PO Q6H PRN PRN #10 tablet PRN Reason: Vomiting Hydrocodone/APAP 5/325 [[place] 5/325 mg] 1 tab PO Q12H PRN PRN #6 tablet MDD 2 PRN Reason: Pain Naproxen 500 mg [Naprosyn 500 MG] 500 mg PO BID #10 tablet
[2022-10-28] MEDS ORDERED: Zofran 4 MG/2 ML VIAL IV ONE (13:32)
[2022-10-28] MEDS ORDERED: Sodium Chloride 0.9% 1000 ML 1,000 ML ONE (13:39)
[2022-10-28] MEDS ORDERED: Zofran 4 MG/2 ML VIAL ONE (13:39)
[2022-10-28] MEDS ORDERED: Sodium Chloride 0.9% 1000 ML 1,000 ML IV SCH (13:45)
[2022-10-28] MEDS ORDERED: PROTONIX 40 MG IV IV ONE ×2 (13:54→14:03)
--- NOTE | 2022-10-28 14:25 | XRAY ---
Indication: Low back pain. Multiple contiguous axial images obtained through the lumbar spine. Sagittal and coronal reformatted images obtained. Comparison: October 09, 2022. Stable osteopenia. Axial images again demonstrates mild broad-based L2-L5 disc osteophyte complex, T11-L1/L2-L4 degenerative vacuum disc phenomena, and moderate bilateral L4-S1 degenerative facet arthropathy. No obvious large disc herniation or spinal canal stenosis. Sagittal coronal reformatted images again demonstrate minimal levoscoliosis, moderate/advanced multilevel thoracolumbar degenerative disc space loss greatest at L2-L4, and minimal grade 1 L4 spondylolisthesis. No acute compression fracture. Visualized noncontrasted soft tissues again demonstrates moderate scattered aortoiliac calcifications, sigmoid diverticulosis, old granulomatous disease, and cholecystectomy clips. Impression: No change compared to October 09, 2022. Again osteopenia, levoscoliosis, multilevel degenerative spondylosis, grade 1 L4 listhesis, arteriosclerotic disease, and sigmoid diverticulosis. No new/acute findings.
[2022-10-28 14:26] LABS: Absolute Neutrophil Ct (ANC) 8.23 x10^3/uL (1.4-6.9); BASOPHIL % 0.7 % (0.0-0.4); Basophil (Absolute #) 0.09 x10^3/uL (0-0.4); Eosinophil % 0.6 % (0.00-5.0); Eosinophil (Absolute #) 0.08 x10^3/uL (0-0.5); Hematocrit 41.1 % (35-47); Hemoglobin 13.3 g/dL (12.0-16.0); IMMATURE GRAN # 0.05 x10^3u/L (0.00-0.03); IMMATURE GRAN % 0.4 % (0.00-0.4); Lymphocyte (Absolute #) 3.28 x10^3/uL (1.0-4.6); Lymphocytes % 25.3 % (24.0-44.0); Mean Corpuscular Hemoglobin 30.1 pg (26-32); Mean Corpuscular Hgb Concent. 32.4 g/dL (32-36); Mean Platelet Volume 9.9 fL (7.5-11.0); Monocyte (Absolute #) 1.22 x10^3/uL (0.0-1.3); Monocytes % 9.4 % (0.0-12.0); Neutrophil % 63.6 % (36.0-66.0); Platelet Count 354 x10^3/uL (150-450); Red Blood Count 4.42 x10^6/uL (4.1-5.4); Red Cell Distribution Width 14.4 % (11.5-14.0)
[2022-10-28 15:55] LABS: Appearance Clear (Clear); Bilirubin Negative (Negative); Blood Negative (Negative); Glucose, Urine Negative (Negative); Ketones Negative (Negative); Leukocyte Esterase Negative (Negative); Nitrite Negative (Negative); Protein,Urine Dip Negative (Negative); Urobilinogen 0.2 mg/dL (0.2)
[2022-10-28 16:08] LABS: ALBUMIN 4.2 g/dL (3.5-5.0); ALKALINE PHOSPHATASE 88 U/L (38-126); AMYLASE 52 U/L (30-110); ANION GAP 11.5 MEQ/L (5-15); BLOOD UREA NITROGEN 13 mg/dL (7-17); CHLORIDE 99 mmol/L (98-107); Calcium 8.9 mg/dL (8.4-10.2); Carbon Dioxide 25 mmol/L (22-30); Creatinine 1 0.65 mg/dL (0.52-1.04); EST GLOMERULAR FILTRATION RATE > 60.0 ML/MIN; Glucose 89 mg/dL (74-106); LIPASE 88 U/L (23-300); SGOT/AST 29 U/L (14-36); SGPT/ALT 16 U/L (0-35); SODIUM 131 mmol/L (137-145); Total Protein 7.2 g/dL (6.3-8.2)
[2022-10-28] MEDS ORDERED: MORPHINE SULFATE 2 MG INJ IV ONE (16:09)
[2022-10-28] MEDS ORDERED: solu-MEDROL 125 MG, Sterile H2O 10 ml 2 ML IV ONE ×2 (16:09)
[2022-10-28 16:12] LABS: Potassium 4.9 mmol/L (3.5-5.1)
[2022-10-28] MEDS ORDERED: MORPHINE SULFATE 2 MG INJ ONE (16:20)
[2022-10-28] MEDS ORDERED: Sterile H2O 10 ml IJ ONE (16:20)
[2022-10-28] MEDS ORDERED: solu-MEDROL ONE (16:21)
[2022-10-28 16:51] LABS: Bacteria None Seen /HPF (None Seen); Epithelial Cells None Seen /HPF (None Seen); Hyaline Casts NONE SEEN /LPF (0-2); RBC 0-2 /HPF (0-5); WBC 0-2 /HPF (0-5)
[2022-10-28 16:54] LABS: ADD URINE CULTURE? NO (NO)
[2022-10-28 17:05] VITALS: BP 152/59; PULSE 62; O2SAT 98
== END 2022-10-28 17:16 | disposition home or self-care (01) ==
LOC: ED 12:43
DX: K29.70 Gastritis, unspecified, without bleeding (principal); M54.32 Sciatica, left side; R11.0 Nausea; I10 Essential (primary) hypertension; E78.5 Hyperlipidemia, unspecified; E11.9 Type 2 diabetes mellitus without complications; Z79.891 Long term (current) use of opiate analgesic; Z79.84 Long term (current) use of oral hypoglycemic drugs; Z79.52 Long term (current) use of systemic steroids; Z79.899 Other long term (current) drug therapy
CPT/HCPCS: 36000; 36415; 72131; 80053; 81001; 82150; 83690; 85025; 96374; 96375; 99284; J2270; J2405; J2930

== ENCOUNTER 2023-06-21 05:36 | Observation (INO) | payer MEDICARE ==
--- NOTE | 2023-06-21 06:13 | ERPHSYRPT ---
- History of Present Illness Time Seen by Provider: 06/21/23 06:01 Source: patient Exam Limitations: no limitations Patient Subjective Stated Complaint: cough, sorethroat, fever, body aches, low back pain since 06/19/23 Triage Nursing Assessment: pt presents to ED via Scat 1, pt alert and oriented x3, skin pwd, pt febrile via oral temperature, pt c/o cough, sorethroat, overall body aches, and low back pain x2-3 days, pt has hx of sciatica Physician History: Pt states she has had a dry cough, sore throat, chills and body aches for the past 2 days; denies vomiting, abdominal pain. Pt states she has been having urinary frequency. Allergies/Adverse Reactions: No Known Drug Allergies Allergy (Verified 06/21/23 05:42) Home Medications: Levothyroxine Sodium [Synthroid] 50 mcg PO DAILY 08/01/15 [History] Metformin HCl 500 mg [Glucophage 500 MG] 500 mg PO BID 08/01/15 [History] Metoprolol Succinate 25 mg PO DAILY 08/01/15 [History] ALPRAZolam [Alprazolam] 1 ea DAILY 10/28/22 [History] Cyanocobalamin (Vitamin B-12) [Vitamin B-12] 10,000 mcg SL DAILY 06/21/23 [History] Ergocalciferol (Vitamin D2) [Drisdol] 1,250 mcg PO WEEKLY 06/21/23 [History] Famotidine [Acid Controller] 20 mg PO BID 06/21/23 [History] Nitroglycerin 0.4 mg Tablet [Nitrostat 0.4 MG Tablet] 0.4 mg SL DIRECTIONS UNKNOWN PRN 06/21/23 [History] Tramadol HCl 50 mg [Ultram 50 mg] 50 mg PO DAILY PRN 06/21/23 [History] Hx Tetanus, Diphtheria Vaccination/Date Given: No Hx Influenza Vaccination/Date Given: Yes Hx Pneumococcal Vaccination/Date Given: Yes Immunizations Up to Date: No Travel Risk - International Travel Have you traveled outside of the country in past 3 weeks: No - Coronavirus Screening Are you exhibiting any of the following symptoms?: Yes Symptoms: Fever, Cough: New Onset Close contact with a COVID-19 positive Pt in past 14-21 Days: No - Vaccine Status Have you recieved a Covid-19 vaccination: Yes Medical Appointment Clerk: Moderna - Vaccination Dates Date of 2cond Vaccination (if applicable): 2020 - Review of Systems Constitutional: Chills Ears, Nose, & Throat: Throat Pain Respiratory: Cough, No Dyspnea Cardiac: No Chest Pain Abdominal/Gastrointestinal: No Abdominal Pain Genitourinary Symptoms: Frequency Musculoskeletal: Myalgias - Past Medical History Pertinent Past Medical History: Yes Neurological History: No Pertinent History ENT History: No Pertinent History Cardiac History: Congestive Heart Failure, Hypertension Respiratory History: Other Endocrine Medical History: Diabetes Type II, Hypothyroidism Musculoskeletal History: Osteoarthritis, Osteoporosis, Rheumatoid Arthritis GI Medical History: Other History: Other Psycho-Social History: Depression Female Reproductive Disorders: Fibroids Other Medical History: CABGx3, LOW SODIUM, KIDNEY PROBLEMS, SOB, - Past Surgical History Past Surgical History: Yes Neuro Surgical History: No Pertinent History Cardiac: CABG, Cardiac Catheterization, Cardiac Stent Respiratory: No Pertinent History Gastrointestinal: Cholecystectomy Genitourinary: No Pertinent History Musculoskeletal: Orthopedic Surgery Female Surgical History: Hysterectomy, Section Other Surgical History: childbirth,2normal,2csection,right knee arthroscopy 2008,right shoulder rotator cuff 2011,triple bipass 2013,6 stents placed prior to bipass, skin cancer removed from top if head. - Social History Smoking Status: Never smoker Exposure to second hand smoke: Yes Drug Use: none Patient Lives Alone: Yes - Nursing Vital Signs Nursing Vital Signs: Initial Vital Signs Temperature 100.7 F 06/21/23 05:42 Pulse Rate 102 H 06/21/23 05:42 Respiratory Rate 18 06/21/23 05:42 Blood Pressure 139/68 06/21/23 05:42 O2 Sat by Pulse Oximetry 97 06/21/23 05:42 Pain Scale Pain Intensity 8 - Physical Exam General Appearance: alert Eye Exam: eyes nml inspection Ears, Nose, Throat Exam: pharyngeal erythema (mild), other (cerumen occlusion of EAC's) Neck Exam: normal inspection Respiratory Exam: normal breath sounds Cardiovascular Exam: normal heart sounds Gastrointestinal/Abdomen Exam: soft, other (B.S. mildly hyperactive and normotonic) Extremity Exam: No amputations Neurologic Exam: alert, cooperative Skin Exam: warm, dry SpO2 Interpretation: normal SpO2: 97 O2 Delivery: Room Air - Course Nursing assessment & vital signs reviewed: Yes - Radiology Exams Chest X-ray Interpretation: Interpreted by me (RLL infiltrate) Ordered Tests: Active Orders 24 hr Category Date Time Status Oxygen-ED Only Nasal Cannula 2 lpm Care 06/21/23 07:03 Active CHEST 1 VIEW (PORTABLE) Stat Exams 06/21/23 06:15 Completed BLOOD CULTURE Stat Lab 06/21/23 07:20 Received BMP Stat Lab 06/21/23 06:14 Completed CBC W DIFF Stat Lab 06/21/23 06:14 Completed CULTURE,SPUTUM Stat Lab 06/21/23 07:03 Ordered UA W/RFX UR CULTURE Stat Lab 06/21/23 06:15 Ordered Respiratory Therapy Assessment DAILY RT 06/21/23 07:23 Active Medication Summary Discontinued Medications Generic Name Dose Route Start Last Admin Trade Name Lela PRN Reason Stop Dose Admin Acetaminophen 650 mg 06/21/23 06:16 06/21/23 06:19 Acetaminophen 325 Mg Tablet PO 06/21/23 06:17 650 mg STAT ONE Administration Acetaminophen Confirm 06/21/23 06:18 Acetaminophen 325 Mg Tablet Administered 06/21/23 06:19 Dose 650 mg .ROUTE .STK-MED ONE Albuterol Sulfate 2.5 mg 06/21/23 07:04 06/21/23 07:22 Albuterol Sulfate 2.5 Mg/3 Ml Neb IH 06/21/23 07:05 2.5 mg STAT ONE Administration Albuterol Sulfate Confirm 06/21/23 07:20 Albuterol Sulfate 2.5 Mg/3 Ml Neb Administered 06/21/23 07:21 Dose 2.5 mg IH .STK-MED ONE Azithromycin 500 mg in 250 mls @ 250 mls/hr 06/21/23 07:02 06/21/23 07:47 Zithromax 500 Mg/ 250 Ml Nacl Premix IV 06/21/23 08:01 250 mls/hr STAT STA 250 mls/hr Administration Ceftriaxone Sodium/Dextrose 1 g in 50 mls @ 100 mls/hr 06/21/23 07:02 06/21/23 07:56 Rocephin 1 Gm-D5w 50 Ml Bag IV 06/21/23 07:31 Infused STAT STA Infusion Ceftriaxone Sodium/Dextrose Confirm 06/21/23 07:09 Rocephin 1 Gm-D5w 50 Ml Bag Administered 06/21/23 07:10 Dose 1 g in 50 mls @ ud IV .STK-MED ONE Azithromycin Confirm 06/21/23 07:46 Zithromax 500 Mg/ 250 Ml Nacl Premix Administered 06/21/23 07:47 Dose 500 mg in 250 mls @ ud IV .STK-MED ONE Lab/Rad Data: Laboratory Result Diagrams 06/21/23 06:14 06/21/23 06:14 Laboratory Results 06/21/23 06/21/23 06/21/23 Range/Units 06:48 06:48 06:14 WBC (4.0-10.5) x10^3/uL RBC (4.1-5.4) x10^6/uL Hgb (12.0-16.0) g/dL Hct (35-47) % MCV (78-100) fL MCH (26-32) pg MCHC (32-36) g/dL RDW (11.5-14.0) % Plt Count (150-450) x10^3/uL MPV (7.5-11.0) fL Gran % (36.0-66.0) % Immature Gran % (Auto) (0.00-0.4) % Nucleat RBC Rel Count (0.00-0.1) % Eos # (Auto) (0-0.5) x10^3/uL Immature Gran # (Auto) (0.00-0.03) x10^3u/L Absolute Lymphs (auto) (1.0-4.6) x10^3/uL Absolute Monos (auto) (0.0-1.3) x10^3/uL Absolute Nucleated RBC (0.00-0.01) x10^3u/L Lymphocytes % (24.0-44.0) % Monocytes % (0.0-12.0) % Eosinophils % (0.00-5.0) % Basophils % (0.0-0.4) % Absolute Granulocytes (1.4-6.9) x10^3/uL Basophils # (0-0.4) x10^3/uL Sodium 128 L (137-145) mmol/L Potassium 4.1 (3.5-5.1) mmol/L Chloride 93 L (98-107) mmol/L Carbon Dioxide 27 (22-30) mmol/L Anion Gap 11.6 (5-15) MEQ/L BUN 15 (7-17) mg/dL Creatinine 0.65 (0.52-1.04) mg/dL Estimated GFR > 60.0 ML/MIN Glucose 110 H (74-106) mg/dL Calcium 8.9 (8.4-10.2) mg/dL Influenza Type A Ag NEGATIVE (NEGATIVE) Influenza Type B Ag NEGATIVE (NEGATIVE) RSV (PCR) NEGATIVE (NEGATIVE) SARS-CoV-2 (PCR) POSITIVE A (NEGATIVE) Group A Strep Antibody NOT DETECTED (NEGATIVE) 06/21/23 Range/Units 06:14 WBC 7.6 (4.0-10.5) x10^3/uL RBC 3.90 L (4.1-5.4) x10^6/uL Hgb 11.7 L (12.0-16.0) g/dL Hct 35.4 (35-47) % MCV 90.8 (78-100) fL MCH 30.0 (26-32) pg MCHC 33.1 (32-36) g/dL RDW 14.4 H (11.5-14.0) % Plt Count 273 (150-450) x10^3/uL MPV 10.1 (7.5-11.0) fL Gran % 73.0 H (36.0-66.0) % Immature Gran % (Auto) 0.3 (0.00-0.4) % Nucleat RBC Rel Count 0.0 (0.00-0.1) % Eos # (Auto) 0.01 (0-0.5) x10^3/uL Immature Gran # (Auto) 0.02 (0.00-0.03) x10^3u/L Absolute Lymphs (auto) 0.38 L (1.0-4.6) x10^3/uL Absolute Monos (auto) 1.57 H (0.0-1.3) x10^3/uL Absolute Nucleated RBC 0.00 (0.00-0.01) x10^3u/L Lymphocytes % 5.0 L (24.0-44.0) % Monocytes % 20.7 H (0.0-12.0) % Eosinophils % 0.1 (0.00-5.0) % Basophils % 0.9 (0.0-0.4) % Absolute Granulocytes 5.52 (1.4-6.9) x10^3/uL Basophils # 0.07 (0-0.4) x10^3/uL Sodium (137-145) mmol/L Potassium (3.5-5.1) mmol/L Chloride (98-107) mmol/L Carbon Dioxide (22-30) mmol/L Anion Gap (5-15) MEQ/L BUN (7-17) mg/dL Creatinine (0.52-1.04) mg/dL Estimated GFR ML/MIN Glucose (74-106) mg/dL Calcium (8.4-10.2) mg/dL Influenza Type A Ag (NEGATIVE) Influenza Type B Ag (NEGATIVE) RSV (PCR) (NEGATIVE) SARS-CoV-2 (PCR) (NEGATIVE) Group A Strep Antibody (NEGATIVE) - Progress Progress: unchanged Air Movement: good Blood Culture(s) Obtained: Yes Antibiotics given: Yes Discussed with DrCasandra: Other (Spoke with Dr. Blackman([id number]) - obs) Will see patient in: hospital (observation) Counseled pt/family regarding: lab results, diagnosis, rad results Medical Desision Making - Diagnostic Testing Diagnostic test were ordered, analyzed, and reviewed by me: Yes Radiological Interpretation: Interpreted by me - Departure Departure Disposition: Observation Clinical Impression: Pneumonia, Fever, COVID-19 Condition: Stable Critical Care Time: No Referrals: FROILAN MAYS NP, RN [Primary Care Provider] - Follow up/PCP as directed
[2023-06-21] MEDS ORDERED: TYLENOL 325 MG PO ONE (06:16)
[2023-06-21] MEDS ORDERED: TYLENOL 325 MG ONE (06:18)
[2023-06-21 06:35] LABS: Absolute Neutrophil Ct (ANC) 5.52 x10^3/uL (1.4-6.9); BASOPHIL % 0.9 % (0.0-0.4); Basophil (Absolute #) 0.07 x10^3/uL (0-0.4); Eosinophil % 0.1 % (0.00-5.0); Eosinophil (Absolute #) 0.01 x10^3/uL (0-0.5); Hematocrit 35.4 % (35-47); Hemoglobin 11.7 g/dL (12.0-16.0); IMMATURE GRAN # 0.02 x10^3u/L (0.00-0.03); IMMATURE GRAN % 0.3 % (0.00-0.4); Lymphocyte (Absolute #) 0.38 x10^3/uL (1.0-4.6); Mean Cell Volume 90.8 fL (78-100); Mean Corpuscular Hgb Concent. 33.1 g/dL (32-36); Mean Platelet Volume 10.1 fL (7.5-11.0); Monocyte (Absolute #) 1.57 x10^3/uL (0.0-1.3); Monocytes % 20.7 % (0.0-12.0); Platelet Count 273 x10^3/uL (150-450); Red Cell Distribution Width 14.4 % (11.5-14.0); White Blood Count 7.6 x10^3/uL (4.0-10.5)
[2023-06-21 06:41] LABS: ANION GAP 11.6 MEQ/L (5-15); BLOOD UREA NITROGEN 15 mg/dL (7-17); CHLORIDE 93 mmol/L (98-107); Calcium 8.9 mg/dL (8.4-10.2); Carbon Dioxide 27 mmol/L (22-30); Creatinine 1 0.65 mg/dL (0.52-1.04); EST GLOMERULAR FILTRATION RATE > 60.0 ML/MIN; Glucose 110 mg/dL (74-106); Potassium 4.1 mmol/L (3.5-5.1); SODIUM 128 mmol/L (137-145)
[2023-06-21] MEDS ORDERED: Zithromax 500 MG/ 250 ML NaCl Premix 500 MG/250 ML IVPB IV STA (07:02)
[2023-06-21] MEDS ORDERED: ROCEPHIN 1 Gm-D5w 50 ml Bag** 1 G/50 ML IVPB IV STA (07:02)
[2023-06-21] MEDS ORDERED: PROVENTIL 2.5 MG/3 ML NEB IH ONE ×2 (07:04→07:20)
[2023-06-21] MEDS ORDERED: ROCEPHIN 1 Gm-D5w 50 ml Bag** 1 G/50 ML IVPB IV ONE (07:09)
--- NOTE | 2023-06-21 07:22 | XRAY ---
Indication: Fever. Comparison: May 03, 2022 Portable chest now demonstrates small patchy right infrahilar opacity, infiltrate versus atelectasis. Remaining lungs clear. Heart not enlarged again with CABG. Bony thorax intact again with osteopenia, degenerative changes, and distal right clavicle resection.
[2023-06-21 07:29] LABS: INFLUENZA A NEGATIVE (NEGATIVE); INFLUENZA B NEGATIVE (NEGATIVE); RESPIRATORY SYNCTIAL VIRUS NEGATIVE (NEGATIVE)
[2023-06-21 07:42] LABS: SARS-CoV-2 Xpert Express POSITIVE (NEGATIVE)
[2023-06-21] MEDS ORDERED: Zithromax 500 MG/ 250 ML NaCl Premix 500 MG/250 ML IVPB IV ONE (07:46)
[2023-06-21 09:16] LABS: Appearance Turbid (Clear); Bacteria None Seen /HPF (None Seen); Bilirubin Negative (Negative); Blood Negative (Negative); Epithelial Cells None Seen /HPF (None Seen); Glucose, Urine Negative (Negative); Hyaline Casts NONE SEEN /LPF (0-2); Ketones Negative (Negative); Leukocyte Esterase Trace (Negative); Nitrite Negative (Negative); Protein,Urine Dip Trace (Negative); Specific Gravity 1.015 (1.005-1.030); Urobilinogen 0.2 mg/dL (0.2); WBC 0-2 /HPF (0-5)
[2023-06-21 09:17] LABS: ADD URINE CULTURE? YES (NO)
[2023-06-21 10:16] LABS: Slide Review 1 YES
[2023-06-21] MEDS ORDERED: VENTOLIN COMMON CANISTER IH PRN (11:02)
[2023-06-21] MEDS ORDERED: Docusate Sodium 100 MG PO PRN (12:57)
[2023-06-21] MEDS ORDERED: Nitrostat 0.4 MG Tablet SL PRN (13:00)
[2023-06-21] MEDS ORDERED: PROVENTIL 2.5 MG/3 ML NEB IH SCH (13:00)
[2023-06-21] MEDS ORDERED: ANTIVERT 25 MG PO PRN (13:00)
--- NOTE | 2023-06-21 13:10 | PCM.HP ---
History of Present Illness - Chief Complaint Chief Complaint: COVID History of Present Illness: is a 83 year old female with a hx of OA of lumbar spine, RA, type II DM, HTN, hypothyroidism, CHF, Depression, anxiety, and CKD. Pt states she has had a dry cough, sore throat, chills and body aches for the past 2 days; denies vomiting, abdominal pain. She was aware she had COVID for 2 days but sxs continued to get worse. She was shaking uncontrollably, fever, and having urinary frequency today. At this time she is no longer having shakiness. She did have some Tylenol for her fever in the ER. She no longer has a temp. She is not requiring oxygen and her lung sounds are clear. Will start pt on paxlovid. Procal and lactate pending. If procal elevated will start antibiotics. She denies CP, SOB, abd. pain, N/V/D at this time. - Review of Systems Constitutional: Fever, Chills, Fatigue Eyes: No Symptoms Ears, Nose, & Throat: No Symptoms Respiratory: Cough, No Short Of Breath Cardiac: No Chest Pain, No Edema, No Syncope Abdominal/Gastrointestinal: No Abdominal Pain, No Nausea, No Vomiting, No Diarrhea Genitourinary Symptoms: No Dysuria Musculoskeletal: No Back Pain, No Neck Pain Skin: No Rash Neurological: Other (shaking), No Dizziness, No Focal Weakness, No Sensory Changes Psychological: No Symptoms, Anxiety, Depression Endocrine: No Symptoms Hematologic/Lymphatic: No Symptoms Immunological/Allergic: No Symptoms Medications & Allergies Home Medications: Home Medication List Levothyroxine Sodium [Synthroid] 50 mcg PO DAILY 08/01/15 [History Confirmed 06/21/23] Metformin HCl 500 mg [Glucophage 500 MG] 500 mg PO BID 08/01/15 [History Confirmed 06/21/23] Metoprolol Succinate 25 mg PO DAILY 08/01/15 [History Confirmed 06/21/23] Aspirin 81 mg PO DAILY #0 10/11/19 [Rx Confirmed 06/21/23] Meclizine HCl 25 mg [Antivert 25 mg] 12.5 mg PO BIDPRN PRN #20 tablet 02/11/20 [Rx Confirmed 06/21/23] ALPRAZolam [Alprazolam] 1 ea HS PRN PRN 10/28/22 [History Confirmed 06/21/23] Calcium Carb/D3/Magnesium/Zinc [Poli Mag Zinc-D3 Tablet] 1 PO DAILY 06/21/23 [Hi story] Cyanocobalamin (Vitamin B-12) [Vitamin B-12] 10,000 mcg SL DAILY 06/21/23 [History Confirmed 06/21/23] Ergocalciferol (Vitamin D2) [Drisdol] 1,250 mcg PO WEEKLY 06/21/23 [History Confirmed 06/21/23] Famotidine [Acid Controller] 20 mg PO BID 06/21/23 [History Confirmed 06/21/23] Nitroglycerin 0.4 mg Tablet [Nitrostat 0.4 MG Tablet] 0.4 mg SL DIRECTIONS UNKNOWN PRN 06/21/23 [History Confirmed 06/21/23] Tramadol HCl 50 mg [Ultram 50 mg] 50 mg PO DAILY PRN 06/21/23 [History Confirmed 06/21/23] Allergies/Adverse Reactions: Allergies Allergy/AdvReac Type Severity Reaction Status Date / Time No Known Drug Allergies Allergy Verified 06/21/23 05:42 - Past Medical History Past Medical History: Yes Neurological History: No Pertinent History ENT History: No Pertinent History Cardiac History: Congestive Heart Failure, Coronary Artery Disease, High Cholesterol, Hypertension Respiratory History: CHF Endocrine Medical History: Diabetes Type II, Hypothyroidism Musculoskelatal History: Arthritis GI Medical History: GERD History: Renal Disease Pyscho-Social History: No Pertinent History Reproductive Disorders: Fibroids Comment: CABGx3, LOW SODIUM, KIDNEY PROBLEMS, SOB, - Female History Are you now?: No - Past Surgical History Past Surgical History: Yes Neuro Surgical History: No Pertinent History Cardiac History: Other Respiratory Surgery: No Pertinent History GI Surgical History: Cholecystectomy Genitourinary Surgical Hx: No Pertinent History Musculskeletal Surgical Hx: Orthopedic Surgery Female Surgical History: Hysterectomy, Section Other Surgical History: triple bypass in 2014 - Social History Smoking Status: Never smoker Exposure to second hand smoke: Yes Alcohol: None Drug Use: none - Physical Exam Vital Signs: Vital Signs - 24 hr Temp Pulse Resp BP BP Pulse Ox 06/21/23 12:00 97.8 F 91 H 16 115/42 97 06/21/23 10:56 87 18 96 06/21/23 10:00 97.6 F 96 H 16 112/52 95 06/21/23 09:30 97.6 F 96 H 16 112/52 94 L 06/21/23 08:23 97 06/21/23 07:24 90 20 94 L 06/21/23 07:00 91 H 20 134/57 96 06/21/23 06:22 18 98 06/21/23 06:00 99 H 18 136/58 99 06/21/23 05:42 100.7 F 102 H 18 139/68 97 General Appearance: no apparent distress, alert Neurologic Exam: alert, oriented x 3, cooperative, normal mood/affect, nml cereb ellar function, nml station & gait, sensation nml, No motor deficits Eye Exam: PERRL/EOMI, eyes nml inspection Ears, Nose, Throat Exam: normal ENT inspection, TMs normal, pharynx normal, moist mucous membranes Neck Exam: normal inspection, non-tender, supple, full range of motion Respiratory Exam: normal breath sounds, lungs clear, No respiratory distress Cardiovascular Exam: regular rate/rhythm, normal heart sounds, normal peripheral pulses Gastrointestinal/Abdomen Exam: soft, normal bowel sounds, No tenderness, No mass Back Exam: normal inspection, normal range of motion, No CVA tenderness, No vertebral tenderness Extremity Exam: normal inspection, normal range of motion, pelvis stable Skin Exam: normal color, warm, dry, No rash Lymphatic Exam: No adenopathy Results - Labs Lab/Micro Results: Lab Results-Last 24 Hours 06/21/23 06/21/23 06/21/23 Range/Units 06:14 06:14 06:48 WBC 7.6 (4.0-10.5) x10^3/uL RBC 3.90 L (4.1-5.4) x10^6/uL Hgb 11.7 L (12.0-16.0) g/dL Hct 35.4 (35-47) % MCV 90.8 (78-100) fL MCH 30.0 (26-32) pg MCHC 33.1 (32-36) g/dL RDW 14.4 H (11.5-14.0) % Plt Count 273 (150-450) x10^3/uL MPV 10.1 (7.5-11.0) fL Gran % 73.0 H (36.0-66.0) % Immature Gran % (Auto) 0.3 (0.00-0.4) % Nucleat RBC Rel Count 0.0 (0.00-0.1) % Eos # (Auto) 0.01 (0-0.5) x10^3/uL Immature Gran # (Auto) 0.02 (0.00-0.03) x10^3u/L Absolute Lymphs (auto) 0.38 L (1.0-4.6) x10^3/uL Absolute Monos (auto) 1.57 H (0.0-1.3) x10^3/uL Absolute Nucleated RBC 0.00 (0.00-0.01) x10^3u/L Lymphocytes % 5.0 L (24.0-44.0) % Monocytes % 20.7 H (0.0-12.0) % Eosinophils % 0.1 (0.00-5.0) % Basophils % 0.9 (0.0-0.4) % Absolute Granulocytes 5.52 (1.4-6.9) x10^3/uL Basophils # 0.07 (0-0.4) x10^3/uL Sodium 128 L (137-145) mmol/L Potassium 4.1 (3.5-5.1) mmol/L Chloride 93 L (98-107) mmol/L Carbon Dioxide 27 (22-30) mmol/L Anion Gap 11.6 (5-15) MEQ/L BUN 15 (7-17) mg/dL Creatinine 0.65 (0.52-1.04) mg/dL Estimated GFR > 60.0 ML/MIN Glucose 110 H (74-106) mg/dL POC Glucometer (74 to 106) mg/dL Calcium 8.9 (8.4-10.2) mg/dL Urine Color (Yellow) Urine Appearance (Clear) Urine pH (4.6-8.0) Ur Specific Elsa (1.005-1.030) Urine Protein (Negative) Urine Glucose (UA) (Negative) mg/dL Urine Ketones (Negative) Urine Blood (Negative) Urine Nitrite (Negative) Urine Bilirubin (Negative) Urine Urobilinogen (0.2) mg/dL Ur Leukocyte Esterase (Negative) U Hyaline Cast (Auto) (0-2) /LPF Urine Microscopic RBC (0-5) /HPF Urine Microscopic WBC (0-5) /HPF Ur Epithelial Cells (None Seen) /HPF Urine Bacteria (None Seen) /HPF Urine Culture Reflexed (NO) Influenza Type A Ag (NEGATIVE) Influenza Type B Ag (NEGATIVE) RSV (PCR) (NEGATIVE) SARS-CoV-2 (PCR) (NEGATIVE) Group A Strep Antibody NOT DETECTED (NEGATIVE) Slides for Path Review YES 06/21/23 06/21/23 06/21/23 Range/Units 06:48 09:09 11:19 WBC (4.0-10.5) x10^3/uL RBC (4.1-5.4) x10^6/uL Hgb (12.0-16.0) g/dL Hct (35-47) % MCV (78-100) fL MCH (26-32) pg MCHC (32-36) g/dL RDW (11.5-14.0) % Plt Count (150-450) x10^3/uL MPV (7.5-11.0) fL Gran % (36.0-66.0) % Immature Gran % (Auto) (0.00-0.4) % Nucleat RBC Rel Count (0.00-0.1) % Eos # (Auto) (0-0.5) x10^3/uL Immature Gran # (Auto) (0.00-0.03) x10^3u/L Absolute Lymphs (auto) (1.0-4.6) x10^3/uL Absolute Monos (auto) (0.0-1.3) x10^3/uL Absolute Nucleated RBC (0.00-0.01) x10^3u/L Lymphocytes % (24.0-44.0) % Monocytes % (0.0-12.0) % Eosinophils % (0.00-5.0) % Basophils % (0.0-0.4) % Absolute Granulocytes (1.4-6.9) x10^3/uL Basophils # (0-0.4) x10^3/uL Sodium (137-145) mmol/L Potassium (3.5-5.1) mmol/L Chloride (98-107) mmol/L Carbon Dioxide (22-30) mmol/L Anion Gap (5-15) MEQ/L BUN (7-17) mg/dL Creatinine (0.52-1.04) mg/dL Estimated GFR ML/MIN Glucose (74-106) mg/dL POC Glucometer 93 (74 to 106) mg/dL Calcium (8.4-10.2) mg/dL Urine Color Yellow (Yellow) Urine Appearance Turbid A (Clear) Urine pH 8.0 (4.6-8.0) Ur Specific Elsa 1.015 (1.005-1.030) Urine Protein Trace A (Negative) Urine Glucose (UA) Negative (Negative) mg/dL Urine Ketones Negative (Negative) Urine Blood Negative (Negative) Urine Nitrite Negative (Negative) Urine Bilirubin Negative (Negative) Urine Urobilinogen 0.2 (0.2) mg/dL Ur Leukocyte Esterase Trace A (Negative) U Hyaline Cast (Auto) NONE SEEN (0-2) /LPF Urine Microscopic RBC 3-5 (0-5) /HPF Urine Microscopic WBC 0-2 (0-5) /HPF Ur Epithelial Cells None Seen (None Seen) /HPF Urine Bacteria None Seen (None Seen) /HPF Urine Culture Reflexed YES (NO) Influenza Type A Ag NEGATIVE (NEGATIVE) Influenza Type B Ag NEGATIVE (NEGATIVE) RSV (PCR) NEGATIVE (NEGATIVE) SARS-CoV-2 (PCR) POSITIVE A (NEGATIVE) Group A Strep Antibody (NEGATIVE) Slides for Path Review - Radiology Impressions Radiology Exams & Impressions: Radiology Procedures Category Date Time Status CHEST 1 VIEW (PORTABLE) Stat Exams 06/21/23 06:15 Completed - Other Procedures and Tests Respiratory Therapy 06/21/23 07:23 Respiratory Therapy Assessment DAILY 06/21/23 08:24 Oxygen Nasal Cannula 2 lpm Assessment/Plan (1) COVID-19 Current Visit: Yes Status: Acute Assessment & Plan: - Confirmed with test in ER - Room air - Tylenol for fever - Start Paxlovid - Chest XR 06/21 Portable chest now demonstrates small patchy right infrahilar opacity, infiltrate versus atelectasis. Remaining lungs clear. Heart not enlarged again with CABG. Bony thorax intact again with osteopenia, degenerative changes, and distal right clavicle resection. - CBC, CMP in AM - Lactic acid and procal pending - UC and BC x2 pending Code(s): U07.1 - COVID-19 (2) Hypothyroid Current Visit: Yes Status: Acute Assessment & Plan: - Continue levothyroxine Code(s): E03.9 - HYPOTHYROIDISM, UNSPECIFIED (3) Anxiety and depression Current Visit: Yes Status: Acute Assessment & Plan: - Continue PRN alprazolam Code(s): F41.9 - ANXIETY DISORDER, UNSPECIFIED; F32.A - DEPRESSION, UNSPECIFIED (4) Type 2 diabetes mellitus Current Visit: Yes Status: Acute Assessment & Plan: - Continue metformin - Accucheck AC/HS (5) HTN (hypertension) Current Visit: Yes Status: Acute Assessment & Plan: - Controlled - Continue metoprolol Code(s): I10 - ESSENTIAL (PRIMARY) HYPERTENSION (6) GERD (gastroesophageal reflux disease) Current Visit: Yes Status: Acute Assessment & Plan: - Continue famotidine Code(s): K21.9 - GASTRO-ESOPHAGEAL REFLUX DISEASE WITHOUT ESOPHAGITIS (7) Fever Current Visit: Yes Status: Acute Assessment & Plan: - Tylenol PRN VTE: Lovenox Code status: DNR D/C plan: 1-2 days Code(s): R50.9 - FEVER, UNSPECIFIED
[2023-06-21] MEDS: TYLENOL 325 MG PO PRN ×2 (13:59→22:03)
[2023-06-21] MEDS: PAXLOVID 150-100 MG PACK (EUA) (RENAL DOSING) PO SCH ×2 (14:00→22:02)
[2023-06-21] MEDS ORDERED: MEDICATION INTERVENTION MC SCH (15:15)
[2023-06-21] MEDS: Glucophage 500 MG PO SCH (16:26)
[2023-06-21] MEDS: ECOTRIN 81 MG PO SCH (22:03)
[2023-06-21] MEDS: Pepcid 20 MG PO SCH (22:03)
[2023-06-21] MEDS: Calcium 500MG W/Vit D Tablet PO SCH (22:03)
[2023-06-21] MEDS: Vibramycin 100 MG PO SCH (22:03)
[2023-06-21] MEDS: xanAX 0.5 MG PO PRN (22:04)
[2023-06-22 06:38] LABS: Hematocrit 34.1 % (35-47); Hemoglobin 11.1 g/dL (12.0-16.0); Mean Cell Volume 91.2 fL (78-100); Mean Corpuscular Hemoglobin 29.7 pg (26-32); Mean Corpuscular Hgb Concent. 32.6 g/dL (32-36); Platelet Count 247 x10^3/uL (150-450); Red Blood Count 3.74 x10^6/uL (4.1-5.4); Red Cell Distribution Width 14.4 % (11.5-14.0); White Blood Count 4.6 x10^3/uL (4.0-10.5)
[2023-06-22 06:57] LABS: ALBUMIN 3.4 g/dL (3.5-5.0); ALKALINE PHOSPHATASE 82 U/L (38-126); ANION GAP 9.9 MEQ/L (5-15); BLOOD UREA NITROGEN 11 mg/dL (7-17); CHLORIDE 97 mmol/L (98-107); Calcium 8.4 mg/dL (8.4-10.2); Carbon Dioxide 25 mmol/L (22-30); EST GLOMERULAR FILTRATION RATE > 60.0 ML/MIN; Glucose 82 mg/dL (74-106); Potassium 3.8 mmol/L (3.5-5.1); SGOT/AST 39 U/L (14-36); SGPT/ALT 23 U/L (0-35); SODIUM 128 mmol/L (137-145); Total Protein 6.1 g/dL (6.3-8.2)
[2023-06-22] MEDS: Glucophage 500 MG PO SCH ×2 (07:23→16:24)
[2023-06-22] MEDS: Dextrose 5%-NS IV Solution 1000 ML 1,000 ML IV SCH ×2 (09:16→21:08)
[2023-06-22] MEDS: ENOXAPARIN SODIUM SQ SCH (09:17)
[2023-06-22] MEDS: PAXLOVID 150-100 MG PACK (EUA) (RENAL DOSING) PO SCH ×2 (09:18→21:16)
[2023-06-22] MEDS: Pepcid 20 MG PO SCH ×2 (09:19→21:11)
[2023-06-22] MEDS: Vibramycin 100 MG PO SCH ×2 (09:19→21:11)
[2023-06-22] MEDS: ROCEPHIN 1 Gm-D5w 50 ml Bag** 1 G/50 ML IVPB IV SCH (09:19)
[2023-06-22] MEDS: ULTRAM 50 MG PO PRN (09:20)
[2023-06-22] MEDS ORDERED: MAGNESIUM PO SCH (10:00)
[2023-06-22] MEDS ORDERED: D3 PO SCH (10:00)
[2023-06-22] MEDS ORDERED: CALCIUM CARB PO SCH (10:00)
[2023-06-22] MEDS ORDERED: NON-FORMULARY ITEM (Aspirin [Aspirin] 81 MG Tablet) PO SCH (10:00)
[2023-06-22] MEDS ORDERED: Zithromax 500 MG/ 250 ML NaCl Premix 500 MG/250 ML IVPB IV SCH (10:00)
[2023-06-22] MEDS ORDERED: ZINC PO SCH (10:00)
[2023-06-22] MEDS ORDERED: [UNRECOGNIZED DRUG - OTHER] PO SCH (10:00)
[2023-06-22] MEDS ORDERED: NON-FORMULARY ITEM (Cyanocobalamin (Vitamin B-12) [Vitamin B-12] 1,000 MCG Tablet) SL SCH (10:00)
[2023-06-22] MEDS: Decadron 4 MG PO SCH ×2 (11:00→21:49)
--- NOTE | 2023-06-22 11:27 | PCM.NOTE ---
Date and Time: 06/22/23 1120 Subjective Assessment: 06/21/23 is a 83 year old female with a hx of OA of lumbar spine, RA, type II DM, HTN, hypothyroidism, CHF, Depression, anxiety, and CKD. Pt states she has had a dry cough, sore throat, chills and body aches for the past 2 days; denies vomiting, abdominal pain. She was aware she had COVID for 2 days but sxs continued to get worse. She was shaking uncontrollably, fever, and having urinary frequency today. At this time she is no longer having shakiness. She did have some Tylenol for her fever in the ER. She no longer has a temp. She is not requiring oxygen and her lung sounds are clear. Will start pt on paxlovid. Procal and lactate pending. If procal elevated will start antibiotics. She denies CP, SOB, abd. pain, N/V/D at this time. 06/22/23 Pt resting in bed. She explains she is not feeling well today however she did sleep well last night. She is wheezing, developed fever overnight, and now requiring oxygen at 2LNC to keep her oxygen level to 93%. It drops more when she sleeps. Her sodium is low and pt reports a hx of hyponatremia for unknown reasons. Will start pt on decadron. Continue antibiotics. Will start D5NS for hyponatremia. She denies CP, Abd. pain, N/V/D. - Review of Systems Constitutional: Fever, Fatigue, No Chills Eyes: No Symptoms Ears, Nose, & Throat: No Symptoms Respiratory: Cough (dry), Short Of Breath, Wheezing Cardiac: No Chest Pain, No Edema, No Syncope Abdominal/Gastrointestinal: No Abdominal Pain, No Nausea, No Vomiting, No Diarrhea Genitourinary Symptoms: No Dysuria Musculoskeletal: No Back Pain, No Neck Pain Skin: No Rash Neurological: No Dizziness, No Focal Weakness, No Sensory Changes Psychological: No Symptoms Endocrine: No Symptoms Hematologic/Lymphatic: No Symptoms Immunological/Allergic: No Symptoms Objective Exam General Appearance: no apparent distress, alert Neurologic Exam: alert, oriented x 3, cooperative, normal mood/affect, nml cerebellar function, sensation nml, No motor deficits Skin Exam: normal color, warm, dry Eye Exam: PERRL, EOMI, eyes nml inspection Ears, Nose, Throat Exam: normal ENT inspection, pharynx normal, moist mucous membranes Neck Exam: normal inspection, non-tender, supple, full range of motion Respiratory Exam: wheezing (throughout), other (now on 2LNC), No respiratory distress Cardiovascular Exam: regular rate/rhythm, normal heart sounds Gastrointestinal/Abdomen Exam: soft, No tenderness, No mass Extremity Exam: normal inspection, normal range of motion Back Exam: normal inspection, normal range of motion, No CVA tenderness, No vertebral tenderness Pelvic Exam: deferred Rectal Exam: deferred OBJECTIVE DATA Vital Signs: Vital Signs - 24 hr Temp Pulse Resp BP Pulse Ox 06/22/23 09:28 117 H 18 93 L 06/22/23 08:00 97.5 F 109 H 18 109/50 96 06/22/23 06:00 18 06/22/23 05:53 107 H 18 93 L 06/22/23 04:08 99.5 F 99 H 15 114/50 93 L 06/22/23 04:00 15 06/22/23 03:00 74 17 97 06/22/23 02:00 17 06/22/23 01:00 89 18 98 06/22/23 00:00 17 06/21/23 23:00 99.5 F 105 H 17 126/59 92 L 06/21/23 22:00 16 06/21/23 21:00 100 H 16 94 L 06/21/23 20:02 94 H 18 95 06/21/23 20:00 16 06/21/23 19:00 98.6 F 98 H 18 127/59 97 06/21/23 18:25 13 06/21/23 17:40 98.6 F 101 H 13 130/59 93 L 06/21/23 15:55 99.1 F 103 H 18 120/58 95 06/21/23 14:20 16 06/21/23 12:00 97.8 F 91 H 16 115/42 97 Pain Assessment - Last Documented Pain Intensity 6 Pain Scale Used 0-10 Pain Scale Intake and Output: Intake & Output 06/19/23 06/20/23 06/21/23 06/22/23 11:59 11:59 11:59 11:59 Intake Total 1740 Balance 1740 Weight 75.2 kg Lab Results: Lab Results-Last 24 Hours 06/21/23 06/21/23 06/21/23 Range/Units 06:14 11:19 13:20 WBC (4.0-10.5) x10^3/uL RBC (4.1-5.4) x10^6/uL Hgb (12.0-16.0) g/dL Hct (35-47) % MCV (78-100) fL MCH (26-32) pg MCHC (32-36) g/dL RDW (11.5-14.0) % Plt Count (150-450) x10^3/uL MPV (7.5-11.0) fL Sodium (137-145) mmol/L Potassium (3.5-5.1) mmol/L Chloride (98-107) mmol/L Carbon Dioxide (22-30) mmol/L Anion Gap (5-15) MEQ/L BUN (7-17) mg/dL Creatinine (0.52-1.04) mg/dL Estimated GFR ML/MIN Glucose (74-106) mg/dL POC Glucometer 93 (74 to 106) mg/dL Lactic Acid 1.4 (0.4-2.0) Calcium (8.4-10.2) mg/dL Total Bilirubin (0.2-1.3) mg/dL AST (14-36) U/L ALT (0-35) U/L Alkaline Phosphatase (38-126) U/L Serum Total Protein (6.3-8.2) g/dL Albumin (3.5-5.0) g/dL Procalcitonin 0.262 H (0.030-0.080) ng/mL 06/21/23 06/21/23 06/22/23 Range/Units : 20:33 06:00 WBC (4.0-10.5) x10^3/uL RBC (4.1-5.4) x10^6/uL Hgb (12.0-16.0) g/dL Hct (35-47) % MCV (78-100) fL MCH (26-32) pg MCHC (32-36) g/dL RDW (11.5-14.0) % Plt Count (150-450) x10^3/uL MPV (7.5-11.0) fL Sodium 128 L (137-145) mmol/L Potassium 3.8 (3.5-5.1) mmol/L Chloride 97 L (98-107) mmol/L Carbon Dioxide 25 (22-30) mmol/L Anion Gap 9.9 (5-15) MEQ/L BUN 11 (7-17) mg/dL Creatinine 0.60 (0.52-1.04) mg/dL Estimated GFR > 60.0 ML/MIN Glucose 82 (74-106) mg/dL POC Glucometer 110 H 99 (74 to 106) mg/dL Lactic Acid (0.4-2.0) Calcium 8.4 (8.4-10.2) mg/dL Total Bilirubin 0.30 (0.2-1.3) mg/dL AST 39 H (14-36) U/L ALT 23 (0-35) U/L Alkaline Phosphatase 82 (38-126) U/L Serum Total Protein 6.1 L (6.3-8.2) g/dL Albumin 3.4 L (3.5-5.0) g/dL Procalcitonin (0.030-0.080) ng/mL 06/22/23 06/22/23 Range/Units 06:00 07:26 WBC 4.6 (4.0-10.5) x10^3/uL RBC 3.74 L (4.1-5.4) x10^6/uL Hgb 11.1 L (12.0-16.0) g/dL Hct 34.1 L (35-47) % MCV 91.2 (78-100) fL MCH 29.7 (26-32) pg MCHC 32.6 (32-36) g/dL RDW 14.4 H (11.5-14.0) % Plt Count 247 (150-450) x10^3/uL MPV 10.0 (7.5-11.0) fL Sodium (137-145) mmol/L Potassium (3.5-5.1) mmol/L Chloride (98-107) mmol/L Carbon Dioxide (22-30) mmol/L Anion Gap (5-15) MEQ/L BUN (7-17) mg/dL Creatinine (0.52-1.04) mg/dL Estimated GFR ML/MIN Glucose (74-106) mg/dL POC Glucometer 94 (74 to 106) mg/dL Lactic Acid (0.4-2.0) Calcium (8.4-10.2) mg/dL Total Bilirubin (0.2-1.3) mg/dL AST (14-36) U/L ALT (0-35) U/L Alkaline Phosphatase (38-126) U/L Serum Total Protein (6.3-8.2) g/dL Albumin (3.5-5.0) g/dL Procalcitonin (0.030-0.080) ng/mL Radiology Exams: Radiology Procedures Category Date Time Status CHEST 1 VIEW (PORTABLE) Stat Exams 06/21/23 06:15 Completed Multi-Disciplinary Progress Notes: Multi-Disciplinary Progress Notes 06/22/23 09:27 Respiratory Note by Nataliia Cordoba Resting room air sat 86%. Placed on 2L NC sats 94% Initialized on 06/22/23 09:27 - END OF NOTE Assessment/Plan (1) COVID-19 Current Visit: Yes Status: Acute Assessment & Plan: - Confirmed with test in ER - Room air - Tylenol for fever - Start Paxlovid - Chest XR 06/21 Portable chest now demonstrates small patchy right infrahilar opacity, infiltrate versus atelectasis. Remaining lungs clear. Heart not enlarged again with CABG. Bony thorax intact again with osteopenia, degenerative changes, and distal right clavicle resection. - CBC, CMP in AM - Lactic acid and procal pending - UC and BC x2 pending 06/22 - Pt started on antibiotics last nigh - Cont Doxy and ceftriaxone - Start Decadron - 2LNC with O2 at 93% - oxygen drops more when sleeps, consider OP sleep study vs home O2 at noc - Cont. paxlovid - Procal 0.262 Code(s): U07.1 - COVID-19 (2) Hypothyroid Current Visit: Yes Status: Acute Assessment & Plan: - Continue levothyroxine Code(s): E03.9 - HYPOTHYROIDISM, UNSPECIFIED (3) Anxiety and depression Current Visit: Yes Status: Acute Assessment & Plan: - Continue PRN alprazolam Code(s): F41.9 - ANXIETY DISORDER, UNSPECIFIED; F32.A - DEPRESSION, UNSPECIFIED (4) Type 2 diabetes mellitus Current Visit: Yes Status: Acute Assessment & Plan: - Continue metformin (5) HTN (hypertension) Current Visit: Yes Status: Acute Assessment & Plan: - Controlled - Continue metoprolol Code(s): I10 - ESSENTIAL (PRIMARY) HYPERTENSION (6) GERD (gastroesophageal reflux disease) Current Visit: Yes Status: Acute Assessment & Plan: - Continue famotidine Code(s): K21.9 - GASTRO-ESOPHAGEAL REFLUX DISEASE WITHOUT ESOPHAGITIS (7) Hyponatremia Current Visit: Yes Status: Acute Assessment & Plan: - Acute on Chronic - Na+ 128 - Start D5NS @ 85ml/hr - Consider SIADH since chronic per pt - Labs ordered for further evaluation of SIADH dx - Fluid restriction 1500 ml day - will recheck in 6 hours, goal not to correct > 12mEq/L in 24 hours or 18 mEq/L in 48 hrs. - May be r/t hypothyroidism- since chronic Code(s): E87.1 - HYPO-OSMOLALITY AND HYPONATREMIA (8) Fever Current Visit: Yes Status: Acute Assessment & Plan: - Tylenol PRN 06/22 - temp overnight of 99.5 VTE: Lovenox Code status: DNR D/C plan: 1-2 days Code(s): R50.9 - FEVER, UNSPECIFIED
[2023-06-22 14:47] LABS: ALBUMIN 3.3 g/dL (3.5-5.0); ALKALINE PHOSPHATASE 75 U/L (38-126); ANION GAP 11.9 MEQ/L (5-15); BLOOD UREA NITROGEN 11 mg/dL (7-17); CHLORIDE 96 mmol/L (98-107); Calcium 8.1 mg/dL (8.4-10.2); Carbon Dioxide 24 mmol/L (22-30); Creatinine 1 0.61 mg/dL (0.52-1.04); EST GLOMERULAR FILTRATION RATE > 60.0 ML/MIN; Glucose 158 mg/dL (74-106); Potassium 4.2 mmol/L (3.5-5.1); SGOT/AST 42 U/L (14-36); SGPT/ALT 25 U/L (0-35); SODIUM 127 mmol/L (137-145)
[2023-06-22] MEDS: CHLORASEPTIC SPRAY 180 ML PO PRN ×2 (18:26→21:15)
[2023-06-22] MEDS: ECOTRIN 81 MG PO SCH (21:10)
[2023-06-22] MEDS: Calcium 500MG W/Vit D Tablet PO SCH (21:11)
[2023-06-22] MEDS: SYNTHROID 50 MCG PO SCH (21:11)
[2023-06-22] MEDS: Toprol-Xl 25MG Tablets PO SCH (21:11)
[2023-06-22] MEDS: HUMALOG SQ PRN (21:14)
[2023-06-22] MEDS ORDERED: Decadron 4 MG ONE (21:27)
[2023-06-23 05:03] LABS: Hematocrit 32.3 % (35-47); Hemoglobin 10.6 g/dL (12.0-16.0); Mean Corpuscular Hemoglobin 29.9 pg (26-32); Mean Corpuscular Hgb Concent. 32.8 g/dL (32-36); Platelet Count 244 x10^3/uL (150-450); Red Blood Count 3.55 x10^6/uL (4.1-5.4); Red Cell Distribution Width 14.2 % (11.5-14.0); White Blood Count 2.7 x10^3/uL (4.0-10.5)
[2023-06-23 05:22] LABS: ALBUMIN 3.3 g/dL (3.5-5.0); ALKALINE PHOSPHATASE 72 U/L (38-126); ANION GAP 10.5 MEQ/L (5-15); BLOOD UREA NITROGEN 10 mg/dL (7-17); CHLORIDE 99 mmol/L (98-107); Calcium 8.3 mg/dL (8.4-10.2); Carbon Dioxide 24 mmol/L (22-30); Creatinine 1 0.49 mg/dL (0.52-1.04); EST GLOMERULAR FILTRATION RATE > 60.0 ML/MIN; Glucose 202 mg/dL (74-106); Potassium 3.8 mmol/L (3.5-5.1); SGOT/AST 35 U/L (14-36); SGPT/ALT 24 U/L (0-35); SODIUM 130 mmol/L (137-145); Total Protein 5.9 g/dL (6.3-8.2)
[2023-06-23] MEDS: Dextrose 5%-NS IV Solution 1000 ML 1,000 ML IV SCH ×2 (08:41→20:05)
[2023-06-23] MEDS: Pepcid 20 MG PO SCH ×2 (08:42→21:24)
[2023-06-23] MEDS: Decadron 4 MG PO SCH ×2 (08:43→21:23)
[2023-06-23] MEDS: Vibramycin 100 MG PO SCH ×2 (08:43→21:24)
[2023-06-23] MEDS: ULTRAM 50 MG PO PRN (08:43)
[2023-06-23] MEDS: PAXLOVID 150-100 MG PACK (EUA) (RENAL DOSING) PO SCH ×2 (08:45→21:20)
[2023-06-23] MEDS: ENOXAPARIN SODIUM SQ SCH (08:46)
[2023-06-23] MEDS: ROCEPHIN 1 Gm-D5w 50 ml Bag** 1 G/50 ML IVPB IV SCH (08:46)
--- NOTE | 2023-06-23 14:01 | PCM.NOTE ---
Date and Time: 06/23/23 1356 Subjective Assessment: 06/21/23 is a 83 year old female with a hx of OA of lumbar spine, RA, type II DM, HTN, hypothyroidism, CHF, Depression, anxiety, and CKD. Pt states she has had a dry cough, sore throat, chills and body aches for the past 2 days; denies vomiting, abdominal pain. She was aware she had COVID for 2 days but sxs continued to get worse. She was shaking uncontrollably, fever, and having urinary frequency today. At this time she is no longer having shakiness. She did have some Tylenol for her fever in the ER. She no longer has a temp. She is not requiring oxygen and her lung sounds are clear. Will start pt on paxlovid. Procal and lactate pending. If procal elevated will start antibiotics. She denies CP, SOB, abd. pain, N/V/D at this time. 06/22/23 Pt resting in bed. She explains she is not feeling well today however she did sleep well last night. She is wheezing, developed fever overnight, and now requiring oxygen at 2LNC to keep her oxygen level to 93%. It drops more when she sleeps. Her sodium is low and pt reports a hx of hyponatremia for unknown reasons. Will start pt on decadron. Continue antibiotics. Will start D5NS for hyponatremia. She denies CP, Abd. pain, N/V/D. 06/23/23 Pt sitting up in a chair today. She is feeling much better. She is still requiring oxygen. RT evaluated for home O2 and she does qualify. She is getting her home sprayed for fleas today. With this going on I do not feel it would be safe for her to breath this. She would benefit from another day a of IV antibiotics due to her needing continued oxygen. Baseline is room air. Sodium has improved. She denies CP, Abd. SOB, abd. pain, N/V. - Review of Systems Constitutional: No Fever, No Chills Eyes: No Symptoms Ears, Nose, & Throat: No Symptoms Respiratory: No Cough, No Short Of Breath Cardiac: No Chest Pain, No Edema, No Syncope Abdominal/Gastrointestinal: No Abdominal Pain, No Nausea, No Vomiting, No Diarrhea (reports chronic intermittent diarrhea) Genitourinary Symptoms: No Dysuria Musculoskeletal: No Back Pain, No Neck Pain Skin: No Rash Neurological: No Dizziness, No Focal Weakness, No Sensory Changes Psychological: No Symptoms Endocrine: No Symptoms Hematologic/Lymphatic: No Symptoms Immunological/Allergic: No Symptoms Objective Exam General Appearance: no apparent distress, alert Neurologic Exam: alert, oriented x 3, cooperative, normal mood/affect, nml cerebellar function, sensation nml, No motor deficits Skin Exam: normal color, warm, dry Eye Exam: PERRL, EOMI, eyes nml inspection Ears, Nose, Throat Exam: normal ENT inspection, pharynx normal, moist mucous membranes Neck Exam: normal inspection, non-tender, supple, full range of motion Respiratory Exam: normal breath sounds, lungs clear, No respiratory distress Cardiovascular Exam: regular rate/rhythm, normal heart sounds Gastrointestinal/Abdomen Exam: soft, No tenderness, No mass Extremity Exam: normal inspection, normal range of motion Back Exam: normal inspection, normal range of motion, No CVA tenderness, No vertebral tenderness Pelvic Exam: deferred Rectal Exam: deferred OBJECTIVE DATA Vital Signs: Vital Signs - 24 hr Temp Pulse Resp BP Pulse Ox 06/23/23 12:00 97.3 F 69 16 130/66 96 06/23/23 10:23 97.6 F 73 15 113/86 94 L 06/23/23 08:03 16 06/23/23 08:00 97.6 F 70 16 124/54 94 L 06/23/23 07:22 67 16 94 L 06/23/23 06:00 66 18 94 L 06/23/23 03:42 98.0 F 70 20 115/47 95 06/23/23 02:00 63 18 94 L 06/23/23 00:00 97.6 F 76 16 140/63 88 L 06/22/23 22:00 97.8 F 99 H 18 93 L 06/22/23 20:00 18 06/22/23 19:41 104 H 14 94 L 06/22/23 19:38 97.7 F 105 H 18 121/60 94 L 06/22/23 18:00 98.4 F 108 H 18 136/68 06/22/23 16:00 22 06/22/23 15:47 99.3 F 100 H 22 137/71 94 L Pain Assessment - Last Documented Pain Intensity 2 Pain Scale Used 0-10 Pain Scale Intake and Output: Intake & Output 06/21/23 06/22/23 06/23/23 06/24/23 11:59 11:59 11:59 11:59 Intake Total 1740 1793 Balance 174 1793 Weight 75.2 kg Lab Results: Lab Results-Last 24 Hours 06/22/23 06/22/23 06/22/23 Range/Units 14:28 14:28 20:44 WBC (4.0-10.5) x10^3/uL RBC (4.1-5.4) x10^6/uL Hgb (12.0-16.0) g/dL Hct (35-47) % MCV (78-100) fL MCH (26-32) pg MCHC (32-36) g/dL RDW (11.5-14.0) % Plt Count (150-450) x10^3/uL MPV (7.5-11.0) fL Sodium 127 L (137-145) mmol/L Potassium 4.2 (3.5-5.1) mmol/L Chloride 96 L (98-107) mmol/L Carbon Dioxide 24 (22-30) mmol/L Anion Gap 11.9 (5-15) MEQ/L BUN 11 (7-17) mg/dL Creatinine 0.61 (0.52-1.04) mg/dL Estimated GFR > 60.0 ML/MIN Glucose 158 H (74-106) mg/dL POC Glucometer 209 H (74 to 106) mg/dL Uric Acid 3.1 (2.6-6.0) mg/dL Calcium 8.1 L (8.4-10.2) mg/dL Total Bilirubin 0.20 (0.2-1.3) mg/dL AST 42 H (14-36) U/L ALT 25 (0-35) U/L Alkaline Phosphatase 75 (38-126) U/L Serum Total Protein 6.0 L (6.3-8.2) g/dL Albumin 3.3 L (3.5-5.0) g/dL 06/23/23 06/23/23 06/23/23 Range/Units 04:31 04:31 07:30 WBC 2.7 L (4.0-10.5) x10^3/uL RBC 3.55 L (4.1-5.4) x10^6/uL Hgb 10.6 L (12.0-16.0) g/dL Hct 32.3 L (35-47) % MCV 91.0 (78-100) fL MCH 29.9 (26-32) pg MCHC 32.8 (32-36) g/dL RDW 14.2 H (11.5-14.0) % Plt Count 244 (150-450) x10^3/uL MPV 10.0 (7.5-11.0) fL Sodium 130 L (137-145) mmol/L Potassium 3.8 (3.5-5.1) mmol/L Chloride 99 (98-107) mmol/L Carbon Dioxide 24 (22-30) mmol/L Anion Gap 10.5 (5-15) MEQ/L BUN 10 (7-17) mg/dL Creatinine 0.49 L (0.52-1.04) mg/dL Estimated GFR > 60.0 ML/MIN Glucose 202 H (74-106) mg/dL POC Glucometer 192 H (74 to 106) mg/dL Uric Acid (2.6-6.0) mg/dL Calcium 8.3 L (8.4-10.2) mg/dL Total Bilirubin 0.20 (0.2-1.3) mg/dL AST 35 (14-36) U/L ALT 24 (0-35) U/L Alkaline Phosphatase 72 (38-126) U/L Serum Total Protein 5.9 L (6.3-8.2) g/dL Albumin 3.3 L (3.5-5.0) g/dL 06/23/23 Range/Units 11:51 WBC (4.0-10.5) x10^3/uL RBC (4.1-5.4) x10^6/uL Hgb (12.0-16.0) g/dL Hct (35-47) % MCV (78-100) fL MCH (26-32) pg MCHC (32-36) g/dL RDW (11.5-14.0) % Plt Count (150-450) x10^3/uL MPV (7.5-11.0) fL Sodium (137-145) mmol/L Potassium (3.5-5.1) mmol/L Chloride (98-107) mmol/L Carbon Dioxide (22-30) mmol/L Anion Gap (5-15) MEQ/L BUN (7-17) mg/dL Creatinine (0.52-1.04) mg/dL Estimated GFR ML/MIN Glucose (74-106) mg/dL POC Glucometer 187 H (74 to 106) mg/dL Uric Acid (2.6-6.0) mg/dL Calcium (8.4-10.2) mg/dL Total Bilirubin (0.2-1.3) mg/dL AST (14-36) U/L ALT (0-35) U/L Alkaline Phosphatase (38-126) U/L Serum Total Protein (6.3-8.2) g/dL Albumin (3.5-5.0) g/dL Multi-Disciplinary Progress Notes: Multi-Disciplinary Progress Notes 06/23/23 11:12 Case Management Note by Alice Pham PRIMARY RN GIVEN PULSE OX MONITOR TO GIVE TO PATIENT TO TAKE HOME AT TIME OF DC Initialized on 06/23/23 11:12 - END OF NOTE 06/23/23 10:57 Case Management Note by Alice Pham S/W [employer] [facility]- THEY ARE UNABLE TO ADD A NURSE UNLESS A SPECIFIC SKILL IS NEEDED FOR THE PATIENT SUCH DRESSING CHANGES. S/W PATIENT ABOUT OTHER COMPANY OPTIONS. REFERRAL FAXED TO [facility] [employer]. THEY WILL NEED NOTIFIED AT TIME OF DC AT [phone]. THEY WILL NEED FAXED THE DC INSTRUCTIONS, DC MED LIST AND DC SUMMARY TO [phone]. ALBER JEROMEZHANG WILL NEED NOTIFIED WELL AT [phone] Initialized on 06/23/23 10:57 - END OF NOTE Assessment/Plan (1) COVID-19 Current Visit: Yes Status: Acute Assessment & Plan: - Confirmed with test in ER - Room air - Tylenol for fever - Start Paxlovid - Chest XR 06/21 Portable chest now demonstrates small patchy right infrahilar opacity, infiltrate versus atelectasis. Remaining lungs clear. Heart not enlarged again with CABG. Bony thorax intact again with osteopenia, degenerative changes, and distal right clavicle resection. - CBC, CMP in AM - Lactic acid and procal pending - UC and BC x2 pending 06/22 - Pt started on antibiotics last night - Cont Doxy and ceftriaxone - Start Decadron - 2LNC with O2 at 93% - oxygen drops more when sleeps, consider OP sleep study vs home O2 at noc - Cont. paxlovid - Procal 0.262 06/23 - Approved for home O2 - On 2 LNC at 96%- drops when sleeping Code(s): U07.1 - COVID-19 (2) Hypothyroid Current Visit: Yes Status: Acute Assessment & Plan: - Continue levothyroxine Code(s): E03.9 - HYPOTHYROIDISM, UNSPECIFIED (3) Anxiety and depression Current Visit: Yes Status: Acute Assessment & Plan: - Continue PRN alprazolam Code(s): F41.9 - ANXIETY DISORDER, UNSPECIFIED; F32.A - DEPRESSION, UNSPECIFIED (4) Type 2 diabetes mellitus Current Visit: Yes Status: Acute Assessment & Plan: -Stopped metformin - Accucheck AC/HS - S/S insulin (5) HTN (hypertension) Current Visit: Yes Status: Acute Assessment & Plan: - Controlled - Continue metoprolol Code(s): I10 - ESSENTIAL (PRIMARY) HYPERTENSION (6) GERD (gastroesophageal reflux disease) Current Visit: Yes Status: Acute Assessment & Plan: - Continue famotidine Code(s): K21.9 - GASTRO-ESOPHAGEAL REFLUX DISEASE WITHOUT ESOPHAGITIS (7) Hyponatremia Current Visit: Yes Status: Acute Assessment & Plan: - Acute on Chronic - Na+ 128 - Start D5NS @ 85ml/hr - Consider SIADH since chronic per pt - Labs ordered for further evaluation of SIADH dx - Fluid restriction 1500 ml day - will recheck in 6 hours, goal not to correct > 12mEq/L in 24 hours or 18 mEq/L in 48 hrs. - May be r/t hypothyroidism- since chronic 06/23 - Na+ improving 130 this morning Code(s): E87.1 - HYPO-OSMOLALITY AND HYPONATREMIA (8) Fever Current Visit: Yes Status: Acute Assessment & Plan: - Tylenol PRN 06/22 - temp overnight of 99.5 06/23 - fever resolved VTE: Lovenox Code status: DNR D/C plan: tomorrow Code(s): R50.9 - FEVER, UNSPECIFIED
[2023-06-23] MEDS: VITAMIN D2 PO SCH ×2 (20:38→21:23)
[2023-06-23] MEDS: ECOTRIN 81 MG PO SCH (21:23)
[2023-06-23] MEDS: SYNTHROID 50 MCG PO SCH (21:24)
[2023-06-23] MEDS: Calcium 500MG W/Vit D Tablet PO SCH (21:24)
[2023-06-23] MEDS: Toprol-Xl 25MG Tablets PO SCH (21:24)
[2023-06-24] MEDS: xanAX 0.5 MG PO PRN (03:05)
[2023-06-24] MEDS ORDERED: VANCOMYCIN 1.25 GM/250 ML BAG 1.25 GM/250 ML PIGGYBACK IV ONE (04:07)
[2023-06-24 04:58] LABS: Hematocrit 31.9 % (35-47); Hemoglobin 10.4 g/dL (12.0-16.0); Mean Cell Volume 91.1 fL (78-100); Mean Corpuscular Hemoglobin 29.7 pg (26-32); Mean Corpuscular Hgb Concent. 32.6 g/dL (32-36); Mean Platelet Volume 10.2 fL (7.5-11.0); Platelet Count 233 x10^3/uL (150-450); Red Cell Distribution Width 14.3 % (11.5-14.0); White Blood Count 7.2 x10^3/uL (4.0-10.5)
[2023-06-24 05:13] LABS: ALBUMIN 3.2 g/dL (3.5-5.0); ALKALINE PHOSPHATASE 62 U/L (38-126); BLOOD UREA NITROGEN 13 mg/dL (7-17); CHLORIDE 100 mmol/L (98-107); Calcium 8.1 mg/dL (8.4-10.2); Carbon Dioxide 23 mmol/L (22-30); Creatinine 1 0.46 mg/dL (0.52-1.04); EST GLOMERULAR FILTRATION RATE > 60.0 ML/MIN; Glucose 193 mg/dL (74-106); Potassium 3.6 mmol/L (3.5-5.1); SGOT/AST 31 U/L (14-36); SGPT/ALT 21 U/L (0-35); SODIUM 130 mmol/L (137-145); Total Protein 5.8 g/dL (6.3-8.2)
[2023-06-24 05:31] VITALS: TEMP 97.8
[2023-06-24 07:31] VITALS: BP 152/74; RESP 16
[2023-06-24] MEDS: Dextrose 5%-NS IV Solution 1000 ML 1,000 ML IV SCH (07:50)
[2023-06-24] MEDS: ENOXAPARIN SODIUM SQ SCH (07:52)
[2023-06-24] MEDS: Decadron 4 MG PO SCH (07:53)
[2023-06-24] MEDS: Vibramycin 100 MG PO SCH (07:53)
[2023-06-24] MEDS: ROCEPHIN 1 Gm-D5w 50 ml Bag** 1 G/50 ML IVPB IV SCH (07:53)
[2023-06-24] MEDS: ULTRAM 50 MG PO PRN (07:54)
[2023-06-24] MEDS: Pepcid 20 MG PO SCH (07:54)
[2023-06-24] MEDS: PAXLOVID 150-100 MG PACK (EUA) (RENAL DOSING) PO SCH (07:55)
[2023-06-24] MEDS: CHLORASEPTIC SPRAY 180 ML PO PRN (07:56)
--- NOTE | 2023-06-24 10:55 | PCM.DS ---
Discharge Summary Date of Admission: 06/21/23 09:11 Date of Discharge: 06/24/23 Admitting Physician: MUKESH FIGUEROA MD Consults: Consults on Case 06/21/23 12:53 Case Management [facility] DC Needs Assessment ROUTINE Primary Care Provider: FROILAN MAYS NP Allergies Allergies No Known Drug Allergies Allergy (Verified 06/21/23 05:42) Hospital Summary - Hospital Course Hospital Course: 06/21/23 is a 83 year old female with a hx of OA of lumbar spine, RA, type II DM, HTN, hypothyroidism, CHF, Depression, anxiety, and CKD. Pt states she has had a dry cough, sore throat, chills and body aches for the past 2 days; denies vomiting, abdominal pain. She was aware she had COVID for 2 days but sxs continued to get worse. She was shaking uncontrollably, fever, and having urinary frequency today. At this time she is no longer having shakiness. She did have some Tylenol for her fever in the ER. She no longer has a temp. She is not requiring oxygen and her lung sounds are clear. Will start pt on paxlovid. Procal and lactate pending. If procal elevated will start antibiotics. She denies CP, SOB, abd. pain, N/V/D at this time. 06/22/23 Pt resting in bed. She explains she is not feeling well today however she did sleep well last night. She is wheezing, developed fever overnight, and now requiring oxygen at 2LNC to keep her oxygen level to 93%. It drops more when she sleeps. Her sodium is low and pt reports a hx of hyponatremia for unknown reasons. Will start pt on decadron. Continue antibiotics. Will start D5NS for hyponatremia. She denies CP, Abd. pain, N/V/D. 06/23/23 Pt sitting up in a chair today. She is feeling much better. She is still requiring oxygen. RT evaluated for home O2 and she does qualify. She is getting her home sprayed for fleas today. With this going on I do not feel it would be safe for her to breath this. She would benefit from another day a of IV anti biotics due to her needing continued oxygen. Baseline is room air. Sodium has improved. She denies CP, Abd. SOB, abd. pain, N/V. 06/24/23 Sxs improved. Pt is sitting up in the chair. She is ready to go home. She is not requiring oxygen at this time. She has an occasional cough. BM's are back to n ormal. After further discussion with case management she does not want her caregiver to come see her this week as she does not want her to get sick. She is ok with no services this week. Will continue paxlovid and decadron at home. She denies CP, SOB, abd. pain, N/V/D. F/U with PCP Friday for f/u care of chest XR results. - Vitals & Intake/Output Vital Signs: Vital Signs Temperature 97.8 F 06/24/23 07:30 Pulse Rate 59 L 06/24/23 07:30 Respiratory Rate 16 06/24/23 08:00 Blood Pressure 152/74 06/24/23 07:30 O2 Sat by Pulse Oximetry 100 06/24/23 07:30 Intake & Output: Intake & Output 06/21/23 06/22/23 06/23/23 06/24/23 11:59 11:59 11:59 11:59 Intake Total 1740 1793 760 Output Total 1 Balance 1740 1793 759 Weight 75.2 kg - Lab Result Diagrams: 06/24/23 04:33 06/24/23 04:33 Lab Results-Last 24 Hrs: Lab Results-Last 24 Hours 06/23/23 06/23/23 06/23/23 Range/Units 11:51 16:23 21:09 WBC (4.0-10.5) x10^3/uL RBC (4.1-5.4) x10^6/uL Hgb (12.0-16.0) g/dL Hct (35-47) % MCV (78-100) fL MCH (26-32) pg MCHC (32-36) g/dL RDW (11.5-14.0) % Plt Count (150-450) x10^3/uL MPV (7.5-11.0) fL Sodium (137-145) mmol/L Potassium (3.5-5.1) mmol/L Chloride (98-107) mmol/L Carbon Dioxide (22-30) mmol/L Anion Gap (5-15) MEQ/L BUN (7-17) mg/dL Creatinine (0.52-1.04) mg/dL Estimated GFR ML/MIN Glucose (74-106) mg/dL POC Glucometer 187 H 180 H 187 H (74 to 106) mg/dL Calcium (8.4-10.2) mg/dL Total Bilirubin (0.2-1.3) mg/dL AST (14-36) U/L ALT (0-35) U/L Alkaline Phosphatase (38-126) U/L Serum Total Protein (6.3-8.2) g/dL Albumin (3.5-5.0) g/dL 06/24/23 06/24/23 06/24/23 Range/Units 04:33 04:33 07:09 WBC 7.2 (4.0-10.5) x10^3/uL RBC 3.50 L (4.1-5.4) x10^6/uL Hgb 10.4 L (12.0-16.0) g/dL Hct 31.9 L (35-47) % MCV 91.1 (78-100) fL MCH 29.7 (26-32) pg MCHC 32.6 (32-36) g/dL RDW 14.3 H (11.5-14.0) % Plt Count 233 (150-450) x10^3/uL MPV 10.2 (7.5-11.0) fL Sodium 130 L (137-145) mmol/L Potassium 3.6 (3.5-5.1) mmol/L Chloride 100 (98-107) mmol/L Carbon Dioxide 23 (22-30) mmol/L Anion Gap 11.0 (5-15) MEQ/L BUN 13 (7-17) mg/dL Creatinine 0.46 L (0.52-1.04) mg/dL Estimated GFR > 60.0 ML/MIN Glucose 193 H (74-106) mg/dL POC Glucometer 190 H (74 to 106) mg/dL Calcium 8.1 L (8.4-10.2) mg/dL Total Bilirubin 0.20 (0.2-1.3) mg/dL AST 31 (14-36) U/L ALT 21 (0-35) U/L Alkaline Phosphatase 62 (38-126) U/L Serum Total Protein 5.8 L (6.3-8.2) g/dL Albumin 3.2 L (3.5-5.0) g/dL Micro Results-Entire Visit: Microbiology 06/21/23 09:09 Urine Culture - Final Urine, Void MIXED MARLENE; 3 OR MORE TYPES. NO PREDOMINANT ORGANISM. NO FURTHER WORKUP. PLEASE RESUBMIT IF CLINICALLY INDICATED. 06/21/23 07:28 Blood Culture - Preliminary Blood 06/21/23 07:20 Blood Culture - Preliminary Blood Accuchecks Date 06/24/23 Date 06/23/23 Date 06/23/23 Date 06/23/23 Time 07:30 Time 16:48 Time 16:48 Time 12:11 - Procedures and Test Procedures and Tests throughout Hospitalization: Therapy Orders & Screens 06/21/23 07:23 Respiratory Therapy Assessment DAILY Comment: 06/21/23 08:24 Oxygen Nasal Cannula 2 lpm Comment: Respiratory Therapy Consult ONCE Comment: Reason For Exam: 06/21/23 12:53 PT Screen per Nursing Assess ONCE Comment: Protocol Order Physician Instructions: Greater than 3 points order PT Admission Screenin Reason For Exam: Triggered on Admission Diagnosis: COVID Open Wound/Cellutlitis/Pressure Ulcers: No Acute Fx/ORIF/Change in wt bearing status: No Severe MUSCULOSKELETAL pain: Yes ADL Dysfunction: No Acute CVA w/Hemiparesis/Hemiplegia: No Decreased Functional Mobility/Strength: No Sprain/Strain: No Acute Post-op Mobility Dysfunction: No Total Points: 5 06/21/23 12:57 EKG PRN Comment: Diagnosis: COVID 06/22/23 10:30 Incentive Spirometry TID Comment: Diagnosis: COVID 06/23/23 09:47 Qualify for Home Oxygen TODAY Comment: Diagnosis: COVID Discharge Exam General Appearance: no apparent distress, alert Neurologic Exam: alert, oriented x 3, cooperative, normal mood/affect, nml cerebellar function, sensation nml, No motor deficits Eye Exam: PERRL, EOMI, eyes nml inspection Ears, Nose, Throat Exam: normal ENT inspection, pharynx normal, moist mucous membranes Neck Exam: normal inspection, non-tender, supple, full range of motion Respiratory Exam: normal breath sounds, lungs clear, No respiratory distress Cardiovascular Exam: regular rate/rhythm, normal heart sounds Gastrointestinal/Abdomen Exam: soft, No tenderness, No mass Pelvic Exam: deferred Rectal Exam: deferred Back Exam: normal inspection, normal range of motion, No CVA tenderness, No vertebral tenderness Extremity Exam: normal inspection, normal range of motion Skin Exam: normal color, warm, dry Final Diagnosis/Problem List - Final Discharge Diagnosis/Problem (1) COVID-19 Current Visit: Yes Status: Acute Code(s): U07.1 - COVID-19 (2) Hypothyroid Current Visit: Yes Status: Acute Code(s): E03.9 - HYPOTHYROIDISM, UNSPECIFIED (3) Anxiety and depression Current Visit: Yes Status: Acute Code(s): F41.9 - ANXIETY DISORDER, UNSPECIFIED; F32.A - DEPRESSION, UNSPECIFIED (4) Type 2 diabetes mellitus Current Visit: Yes Status: Acute (5) HTN (hypertension) Current Visit: Yes Status: Acute Code(s): I10 - ESSENTIAL (PRIMARY) HYPERTENSION (6) GERD (gastroesophageal reflux disease) Current Visit: Yes Status: Acute Code(s): K21.9 - GASTRO-ESOPHAGEAL REFLUX DISEASE WITHOUT ESOPHAGITIS (7) Hyponatremia Current Visit: Yes Status: Acute Code(s): E87.1 - HYPO-OSMOLALITY AND HYPONATREMIA (8) Fever Current Visit: Yes Status: Acute Assessment & Plan: (1) COVID-19 Current Visit: Yes Status: Acute Assessment & Plan: - Confirmed with test in ER - Room air - Tylenol for fever - Start Paxlovid - Chest XR 06/21 Portable chest now demonstrates small patchy right infrahilar opacity, infiltrate versus atelectasis. Remaining lungs clear. Heart not enlarged again with CABG. Bony thorax intact again with osteopenia, degenerative changes, and distal right clavicle resection. - CBC, CMP in AM - Lactic acid and procal pending - UC and BC x2 pending 06/22 - Pt started on antibiotics last night - Cont Doxy and ceftriaxone - Start Decadron - 2LNC with O2 at 93% - oxygen drops more when sleeps, consider OP sleep study vs home O2 at noc - Cont. paxlovid - Procal 0.262 06/23 - Approved for home O2 - On 2 LNC at 96%- drops when sleeping 06/24 - O2 PRN - Continue Paxlovid and decadron at home Code(s): U07.1 - COVID-19 (2) Hypothyroid Current Visit: Yes Status: Acute Assessment & Plan: - Continue levothyroxine Code(s): E03.9 - HYPOTHYROIDISM, UNSPECIFIED (3) Anxiety and depression Current Visit: Yes Status: Acute Assessment & Plan: - Continue PRN alprazolam Code(s): F41.9 - ANXIETY DISORDER, UNSPECIFIED; F32.A - DEPRESSION, UNSPECIFIED (4) Type 2 diabetes mellitus Current Visit: Yes Status: Acute Assessment & Plan: -Stopped metformin - Accucheck AC/HS - S/S insulin (5) HTN (hypertension) Current Visit: Yes Status: Acute Assessment & Plan: - Controlled - Continue metoprolol Code(s): I10 - ESSENTIAL (PRIMARY) HYPERTENSION (6) GERD (gastroesophageal reflux disease) Current Visit: Yes Status: Acute Assessment & Plan: - Continue famotidine Code(s): K21.9 - GASTRO-ESOPHAGEAL REFLUX DISEASE WITHOUT ESOPHAGITIS (7) Hyponatremia Current Visit: Yes Status: Acute Assessment & Plan: - Acute on Chronic - Na+ 128 - Start D5NS @ 85ml/hr - Consider SIADH since chronic per pt - Labs ordered for further evaluation of SIADH dx - Fluid restriction 1500 ml day - will recheck in 6 hours, goal not to correct > 12mEq/L in 24 hours or 18 mEq/L in 48 hrs. - May be r/t hypothyroidism- since chronic 06/23 - Na+ improving 130 this morning 06/24 - Na+ 130 - mild hyponatremia - Will need OP f/u evaluation Code(s): E87.1 - HYPO-OSMOLALITY AND HYPONATREMIA (8) Fever Current Visit: Yes Status: Acute Assessment & Plan: - Tylenol PRN 06/22 - temp overnight of 99.5 06/23 - fever resolved Code(s): R50.9 - FEVER, UNSPECIFIED - Discharge Discharge Date: 06/24/23 Disposition: Home, Self-Care Condition: Stable Prescriptions: New Dexamethasone 4 mg [Decadron 4 MG] 6 mg PO Q12HT 4 Days #8 tablet Nirmatrelvir/Ritonavir [Paxlovid 150-100 mg Pack (Eua) (Renal Dosing)] 1 each PO BID 2 Days #3 Continue Levothyroxine Sodium [Synthroid] 50 mcg PO DAILY Metformin HCl 500 mg [Glucophage 500 MG] 500 mg PO BID Metoprolol Succinate 25 mg PO DAILY Aspirin 81 mg PO DAILY #0 Meclizine HCl 25 mg [Antivert 25 mg] 12.5 mg PO BIDPRN PRN #20 tablet PRN Reason: Dizziness ALPRAZolam [Alprazolam] 1 ea HS PRN PRN PRN Reason: Anxiety Cyanocobalamin (Vitamin B-12) [Vitamin B-12] 10,000 mcg SL DAILY Nitroglycerin 0.4 mg Tablet [Nitrostat 0.4 MG Tablet] 0.4 mg SL DIRECTIONS UNKNOWN PRN PRN Reason: Chest Pain Ergocalciferol (Vitamin D2) [Drisdol] 1,250 mcg PO WEEKLY Famotidine [Acid Controller] 20 mg PO BID Tramadol HCl 50 mg [Ultram 50 mg] 50 mg PO DAILY PRN PRN Reason: Pain Calcium Carb/D3/Magnesium/Zinc [Poli Mag Zinc-D3 Tablet] 1 tab PO DAILY Additional Instructions: [facility] HAS BEEN SET UP. THEY WILL CONTACT YOU TO ARRANGE A TIME TO COME SEE YOU. THEIR PHONE NUMBER IS [phone] IF YOU NEED SOMETHING BEFORE THEIR FIRST VISIT. Follow up with: FROILAN MAYS NP, RN [Primary Care Provider] -
[2023-06-24] MEDS: HUMALOG SQ PRN (11:46)
[2023-06-24 11:48] VITALS: PULSE 57; O2SAT 97
[2023-06-25 10:38] LABS: Osmolality, Urine 530 mOsmol/kg (.)
[2023-06-26 12:40] LABS: Osmolality-Se/Pl 263 mOsmol/kg (280-301)
== END 2023-06-24 12:15 | disposition home or self-care (01) ==
LOC: ED 05:36 → MED SURG 09:11
PROVIDERS: ADMIT Internal Medicine; ATTEND Internal Medicine
DX: U07.1 COVID-19 (principal); E03.9 Hypothyroidism, unspecified; F41.9 Anxiety disorder, unspecified; E11.22 Type 2 diabetes mellitus with diabetic chronic kidney disease; I13.0 Hypertensive heart and chronic kidney disease with heart failure and stage 1 through stage 4 chronic kidney disease, or unspecified chronic kidney disease; N18.9 Chronic kidney disease, unspecified; I50.9 Heart failure, unspecified; K21.9 Gastro-esophageal reflux disease without esophagitis; E87.1 Hypo-osmolality and hyponatremia; R50.9 Fever, unspecified; R60.0 Localized edema; Z79.899 Other long term (current) drug therapy; Z20.828 Contact with and (suspected) exposure to other viral communicable diseases; Z95.1 Presence of aortocoronary bypass graft
CPT/HCPCS: 0241U; 36000; 36415; 71045; 80048; 80053; 81001; 82947; 83605; 83930; 83935; 84145; 84550; 84588; 85025; 85027; 87040; 87086; 87651; 93005; 93268; 94640; 94762; 96365; 99285; G0378; Q3014; J0456; J0696; J1650; J1817; J7609; A9270-GY; J3370

== ENCOUNTER → 2024-07-12 | Day surgery (SDC) | payer MEDICARE, OTHER ==
--- NOTE | 2024-07-11 18:34 | HP ---
HISTORY AND PHYSICAL HISTORY OF PRESENT ILLNESS: Patient has had some cough with almost gagging. Feels like kernel of corn in throat, dysphagia upper right throat area. Patient feels like it extends up to the right ear on the right. FAMILY HISTORY: Negative for esophageal cancer. Her dad had pancreatic cancer. Pancreatic cancer, heart disease, diabetes. PAST MEDICAL HISTORY: Patient did not remember if she had prior EGD or not. Past medical history, otherwise, included hypertension, reflux, diabetes, hypothyroidism, heartburn and heart disease. PAST SURGICAL HISTORY: She had CABG, three vessel in the past; had cholecystectomy, cardiac cath, coronary stents x6 in the past; hysterectomy in the past. SOCIAL HISTORY: No smoking or alcohol abuse. MEDICATIONS: Has been on some Tylenol, omeprazole, metoprolol, metformin, levothyroxine, vitamin D2 and aspirin. ALLERGIES: Statins, HmG-COA reductase inhibitors. REVIEW OF SYSTEMS: Twelve systems reviewed. Pertinent for other medical problems as noted above. Otherwise, no chest pain or palpitations. PHYSICAL EXAMINATION: GENERAL: Height 5 foot 3 inches. BMI 28.87. No acute distress. HEENT: Sclerae nonicteric. NECK: No JVD. CHEST: Equal excursion, nonlabored breathing. CARDIOVASCULAR: Regular rate and rhythm. ABDOMEN: Soft. EXTREMITIES: No cyanosis or edema. NEUROLOGIC: Alert and oriented, moving all extremities symmetrically. PSYCHIATRIC: Appropriate mood and affect. SKIN: Dry. IMPRESSION: Dysphagia in need of esophagogastroduodenoscopy, possible esophageal dilatation, evaluate for narrowing, esophagitis or other etiology. Risks of bleeding or infection, risk of perforation, possible need for an open procedure or transfer for stent placement, possible no improvement in swallowing, possibly requiring another procedure, dilators, or referrals; risk of possible wound in the area of the dilator; possible neurologic or functional problem dilatation might not benefit. If dilatation performed and does improve swallowing, it might need to be repeated again down the road. She agreed to the planned proceed. We will proceed with outpatient EGD, possible biopsy, possible dilatation as an outpatient under MAC anesthesia. Otherwise, continue medications for her heart disease, reflux, hypertension, diabetes and thyroid disease.
[~2024-07-12] MED LIST changes: +DIPRIVAN 200 MG/20 ML IV ONE; -Lactated Ringers 1,000 ML IV ONE; -Lactated Ringers 1,000 ML IV SCH
[2024-07-12 11:46] VITALS: RESP 18
[2024-07-12] MEDS: Lactated Ringers 1,000 ML IV SCH (11:55)
[2024-07-12 14:59] VITALS: BP 147/95; PULSE 76; TEMP 97.3; O2SAT 93
--- NOTE | 2024-07-13 09:58 | OP ---
SURGERY DATE/TIME: 07/12/2024 [id number] PREOPERATIVE DIAGNOSIS: Dysphagia. POSTOPERATIVE DIAGNOSES: 1) Proximal esophageal narrowing and spasm without any evidence of any mass. 2) Gastritis. PROCEDURES: 1) Esophagogastroduodenoscopy with cold biopsy of the distal and proximal esophagus to evaluate for eosinophilic esophagitis. 2) Cold biopsy in the antrum for H pylori. 3) Proximal esophageal balloon dilatation (size 20 balloon). SURGEON: Colt Sheets MD. ANESTHESIA: MAC. ESTIMATED BLOOD LOSS: Minimal. INDICATIONS: As noted above. Consent was obtained. DESCRIPTION OF PROCEDURE AND FINDINGS: The patient was taken to the endoscopy room, MAC anesthesia was induced after official time-out for planned procedure. Bite block positioned. Videogastroscope passed down the esophagus. There was some proximal esophageal narrowing and spasm. There was no gross mass here but there was some narrowing and spasm. The scope was easily passed through the GE junction through the patent pylorus to the junction of the third and fourth portions of duodenum. The duodenum was fairly unremarkable, pulled back into the stomach. She definitely had gastritis, some linear erythema streaks consistent with mild gastritis. Cold biopsy was taken for H pylori. There was no evidence of any ulcers. On retroflexion, the GE junction was snug against the scope. Scope was pulled back to GE junction. The Z-line was crisp. No signs of [place]'s. No signs of any erosions. No signs of any macroscopic view of any inflammation. Cold biopsy was taken in the distal and proximal esophagus to evaluate for eosinophilic esophagitis. Otherwise, the scope was passed back down. It was felt she would benefit from dilatation as she was having symptoms back in the proximal esophagus. Scope passed back down into the stomach. A catheter was carefully passed down at the end of the scope into the stomach and then pulled back up to the proximal esophageal area. There was narrowing and had some spasm. There were no signs of any mass here to biopsy, but it was felt to be worthwhile to try dilating this to see if her symptoms improve. We then carefully inflated to the first stage. The patient was coughing a little bit. We then inflated to second stage and then eventually to the third stage, and this was left up for a size 20 balloon dilator for 1-1/2 to 2 minutes, then released. The balloon was then withdrawn, and the scope much more easily passed through this area. There was no evidence of any full-thickness issues or injuries secondary to dilatation. Scope was passed back down into the stomach and then carefully withdrawn. The biopsy site has good hemostasis. In proximal esophageal dilated area, there was no evidence of any full-thickness issues or injury secondary to dilatation. Scope was withdrawn. Patient tolerated the procedure well. There was no family out in the waiting area to discuss the findings with. We will see her back in the office in the next week or two.
== END ==
LOC: SDC 10:58
PROVIDERS: ATTEND Surgery
DX: K29.70 Gastritis, unspecified, without bleeding (principal); K22.2 Esophageal obstruction; R13.10 Dysphagia, unspecified; E11.9 Type 2 diabetes mellitus without complications; Z80.8 Family history of malignant neoplasm of other organs or systems
CPT/HCPCS: 82947; 93005; 99100; C1726; J2704